=== PATIENT | female | born 1940 | race Caucasian/White ===

== ENCOUNTER 2017-02-16 11:34 | Inpatient (IN) ==
[2017-02-16 14:28] LABS: BASO% 0.1 % (0.0-0.8); EOS# 0.23 X1000 (0.0-0.7); EOS% 1.5 % (0.0-10.0); HEMATOCRIT 40.4 % (37.0-47.0); LYMPH# 2.61 X1000 (1.2-3.4); LYMPH% 17.4 % (20.5-51.1); MANUAL DIFF NEEDED? NO; MCH 30.2 PG (27-31); MCHC 32.2 g/dL (33-37); MCV 93.7 FL (81-99); MONO# 1.29 X1000 (0.11-0.59); MONO% 8.6 % (1.7-9.3); MPV 10.2 FL (7.4-10.4); NEUT% 72.4 % (42.2-75.2); PLT 190 X1000 (130-400); RBC 4.31 XMIL (4.2-5.4)
[2017-02-16 14:48] LABS: ALBUMIN 3.3 g/dL (3.5-5.0); CALCIUM 9.5 mg/dL (8.8-10.2); POTASSIUM 2.9 mmol/L (3.5-5.1); TOTAL BILIRUBIN 0.27 mg/dL (0.20-1.00); TOTAL PROTEIN 7.4 g/dL (6.3-8.3)
[2017-02-16] MEDS ORDERED: KLOR-CON PO ONE ×2 (17:15→22:16)
[2017-02-16] MEDS ORDERED: LOVENOX 1 MG/KG SUBQ ONE (17:57)
--- NOTE | 2017-02-16 18:07 | PROVIDER DOCUMENTATION ---
This chart was entered by Lyric Cruz Scribe, acting as scribe for Sukumar Kay MD. HPI-Syncope/Dizziness - General Chief Complaint: Near Syncope Stated Complaint: SYNCOPE/ACCIDENTAL OVERDOSE Time Seen by Provider: 02/16/17 12:42 Source: patient Allergies/Adverse Reactions: Patient Allergies Allergy/AdvReac Type Severity Reaction Status Date / Time Penicillins Allergy Intermediate RASH Verified 02/16/17 14:28 ciprofloxacin [From Cipro] Allergy Unknown contraindicated Verified 02/16/17 14: 28 in MG ciprofloxacin HCl * Allergy Unknown contraindicated Verified 02/16/17 14:28 [From Cipro] in MG Home Medications: Home Medication List Medication Instructions Recorded Confirmed Last Taken Type Allopurinol 300 mg PO DAILY 02/16/17 02/16/17 02/16/17 09:00 History Aspirin [Lo-Dose Aspirin EC] 81 mg PO DAILY 02/16/17 02/16/17 02/16/17 09:00 History Calcium Carbonate/Vit D3 [Caltrate 1 tab PO DAILY 02/16/17 02/16/17 02/16/17 09: 00 History 600 + D] Carvedilol [Coreg] 25 mg PO BID 02/16/17 02/16/17 02/16/17 09:00 History Cholecalciferol (Vit D3) [Vitamin 1,000 unit PO DAILY 02/16/17 02/16/17 09:00 History D] Cyclobenzaprine [Flexeril] 10 mg PO TID 02/16/17 02/16/17 02/16/17 06:00 History Estrogens, Conjugated [Premarin] 0.3 mg PO DAILY 02/16/17 02/16/17 02/16/17 09: 00 History Fenofibrate [Tricor] 48 mg PO QHS 02/16/17 02/16/17 02/15/17 17:00 History Folic Acid 1 mg PO DAILY 02/16/17 02/16/17 02/16/17 09:00 History Furosemide [Lasix] 20 mg PO DAILY 02/16/17 02/16/17 02/16/17 09:00 History Gabapentin 600 mg PO Q8H 02/16/17 02/16/17 02/16/17 06:00 History Hydrochlorothiazide 12.5 mg PO DAILY 04/07/2702/16/17 02/16/17 09:00 History Lisinopril 2.5 mg PO DAILY 02/16/17 02/16/17 02/16/17 09:00 History [place]-3 Fatty Acids/Fish Oil [Fish 1 each PO DAILY 02/16/17 02/16/17 02/16/17 09 :00 History Oil 1,000 mg Capsule] Polyethylene Glycol 3350 [Miralax] 17 gm PO DAILY 02/16/17 02/16/17 02/16/17 09: 00 History Prednisone 7.5 mg PO DAILY 02/16/17 02/16/17 02/16/17 09:00 History Rosuvastatin Calcium [Crestor] 5 mg PO HS 02/16/17 02/16/17 02/15/17 17:00 History Vitamin S73-[id number] Factor 2 each PO DAILY 02/16/17 02/16/17 02/16/17 09:00 History [Martinic] - History of Present Illness-Syncope/Dizzy Nature of Presenting Problem: Pt is 76 y/o F presents to the ED with near syncopal episode. Pt states she felt faint then was lowered to the ground. Pt denies LOC. PT denies CP or SOB. Pt denies vision changes. Pt denies recent med change. Prior Episodes: reports: single episode today Onset/Duration: reports: just prior to arrival Timing: reports: still present Position/Activity at time of episode: reports: standing Symptoms prior to episode: reports: none Context: reports: felt faint Loss of Consciousness: no loss of consciousness Location of injury. (If syncope resulted in an injury.): reports: none Current Symptoms: reports: none/feels normal Recently Seen Here or By Another Healthcare Provider: Yes (6 weeka ago right hip replacement) Review of Systems - Adult - REVIEW OF SYSTEMS - ADULT Constitutional: reports: no symptoms reported Eyes: reports: no symptoms reported Ears, Nose, Mouth & Throat: reports: no symptoms reported Cardiovascular: reports: syncope Respiratory: reports: no symptoms reported Gastrointestinal: reports: no symptoms reported Genitourinary: reports: no symptoms reported Musculoskeletal: reports: no symptoms reported Integumentary: reports: no symptoms reported Neurological: reports: syncope (near). denies: dizziness/vertigo, headache/ migraines Psychiatric: reports: no symptoms reported Endocrine: reports: no symptoms reported Hematologic/Lymphatic: reports: no symptoms reported Allergic/Immunologic: reports: no symptoms reported All Other Systems: Reviewed and Negative Past History - Adult - PAST MEDICAL HISTORY-ADULT Review of Records: reports: Nursing Assessment Review, Medications Reviewed, Social history reviewed & non-contributory. Major Childhood Illnesses: reports: denies history Cardiovascular: reports: HTN, hyperlipidemia Respiratory: reports: denies history Gastrointestinal: reports: GERD Obstetrical/Gynecological: reports: denies history Genitourinary: reports: denies history Musculoskeletal: reports: denies history Neurological: reports: denies history Endocrine/Immune: reports: denies history Other Conditions: reports: denies history - PRIOR SURGERIES/PROCEDURES Surgical/Procedure History: reports: hysterectomy, tonsillectomy, joint replacement - IMMUNIZATION STATUS Childhood Immunizations: See Nurse Assessment Flu Vaccine: See Nurse Assessment - FAMILY HISTORY Family History: reviewed, not pertinent - SOCIAL HISTORY Smoking: denies Substance Use: denies Living Situation: family Physical Exam-General - PHYSICAL EXAM-ADULT Initial Vital Signs Reviewed: Yes - CONSTITUTIONAL General Appearance: appears well, alert, no apparent distress - EYES Eyes: PERRL/EOMI, pink conjunctivae - HEAD, EARS, NOSE, MOUTH & THROAT HENMT: normocephalic/atraumatic, moist mucous membranes, normal ENT inspection, TMs normal, pharynx normal - NECK Neck: non-tender, full range of motion, supple, normal inspection - RESPIRATORY Respiratory: chest non-tender, lungs clear, normal breath sounds, no pleuratic chest pain, no respiratory distress, no accessory muscle use - CARDIOVASCULAR Cardiovascular: normal peripheral pulses, regular rate, rhythm, no edema, no gallop, no JVD, no murmur - GASTROINTESTINAL (ABDOMEN) Abdominal Exam: normal bowel sounds, non tender, soft, no organomegaly, no pulsatile mass - LYMPHATIC Lymphatic: no adenopathy - MUSCULOSKELETAL Back Exam: normal inspection, no CVA tenderness, no vertebral tenderness Extremity: normal range of motion, non-tender, normal gait, normal inspection, no pedal edema, no calf tenderness, normal capillary refill, pelvis stable - SKIN Integumentary: normal color, normal turgor, warm/dry - NEUROLOGIC Neurologic: grossly normal - PSYCHIATRIC Psych/Mental Status: normal mood/affect, oriented x 3 Progress - PLAN OF CARE/RESULTS Progress/Plan/Lab Results: Laboratory Results - last 24 hr 02/16/17 02/16/1717 14:09 14:09 14:09 WBC 14.99 H RBC 4.31 Hgb 13.0 Hct 40.4 MCV 93.7 MCH 30.2 MCHC 32.2 L RDW Std Deviation 15.0 H Plt Count 190 MPV 10.2 Neut % (Auto) 72.4 Lymph % (Auto) 17.4 L [place] % (Auto) 8.6 Eos % (Auto) 1.5 Baso % (Auto) 0.1 Neut # (Auto) 10.84 H Lymph # (Auto) 2.61 [place] # (Auto) 1.29 H Eos # (Auto) 0.23 Baso # (Auto) 0.02 Sodium 136 Potassium 2.9 L Chloride 93 L Carbon Dioxide 30 Anion Gap 13 BUN 22 Creatinine 1.0 H Estimated GFR/1.73 m2 54 BUN/Creatinine Ratio 22 Glucose 90 Calculated Osmolality 275 Calcium 9.5 Total Bilirubin 0.27 AST 14 ALT 13 Alkaline Phosphatase 77 Troponin T < 0.010 Total Protein 7.4 Albumin 3.3 L Globulin 4.1 Albumin/Globulin Ratio 0.8 Urine Source Urine Color Urine Turbidity Urine pH Ur Specific [place] Urine Protein Ur Glucose (Stick) Ur Ketones (Stick) Urine Blood Urine Nitrite Urine Bilirubin Urobilinogen Dipstick Urine Leukocytes Urine WBC (Auto) Urine RBC (Auto) U Epithel Cells (Auto) Urine Bacteria (Auto) 02/16/17 17:35 WBC RBC Hgb Hct MCV MCH MCHC RDW Std Deviation Plt Count MPV Neut % (Auto) Lymph % (Auto) [place] % (Auto) Eos % (Auto) Baso % (Auto) Neut # (Auto) Lymph # (Auto) [place] # (Auto) Eos # (Auto) Baso # (Auto) Sodium Potassium Chloride Carbon Dioxide Anion Gap BUN Creatinine Estimated GFR/1.73 m2 BUN/Creatinine Ratio Glucose Calculated Osmolality Calcium Total Bilirubin AST ALT Alkaline Phosphatase Troponin T Total Protein Albumin Globulin Albumin/Globulin Ratio Urine Source CLEAN CATCH Urine Color YELLOW Urine Turbidity CLEAR Urine pH 6.5 Ur Specific [place] 1.008 Urine Protein NEGATIVE Ur Glucose (Stick) NEGATIVE Ur Ketones (Stick) NEGATIVE Urine Blood NEGATIVE Urine Nitrite NEGATIVE Urine Bilirubin NEGATIVE Urobilinogen Dipstick NORMAL Urine Leukocytes NEGATIVE Urine WBC (Auto) <10 Urine RBC (Auto) <10 U Epithel Cells (Auto) <10 Urine Bacteria (Auto) NEGATIVE Orders Category Date Time Status CTA [ANGIOGRAM/PULMONARY ARTERIES] [CT] Stat Exams 02/16/17 17:52 Completed HEAD W/O CONTRAST [CT] Stat Exams 02/16/17 14:13 Draft CBC WITH DIFF [HEME] Stat Lab 02/16/17 14:09 Completed CMP [COMPREHENSIVE METABOLIC PANEL] [CHEM] Stat Lab 02/16/17 14:09 Completed TROPONIN T Stat Lab 02/16/17 14:09 Completed URINALYSIS W/POSS RFLX CULT [URINALYSIS] Stat Lab 02/16/17 17:35 Completed Allopurinol [Zyloprim] Med 02/17/17 09:00 Active 300 mg PO DAILY Aspirin EC Med 02/17/17 09:00 Active 81 mg PO DAILY Calcium Carbonate/Vit D3 [Caltrate 600 + D] Med 02/17/17 09:00 Active 1 each PO DAILY Carvedilol [Coreg] Med 02/17/17 09:00 Active 25 mg PO BID Cholecalciferol (Vit D3) [Vitamin D] Med 02/17/17 09:00 Active 1,000 unit PO DAILY Cyclobenzaprine [Flexeril] Med 02/17/17 09:00 Active 10 mg PO TID Enoxaparin 1 mg/kg [Lovenox 1 mg/kg] Med 02/16/17 17:57 Discontinued 1 each SUBQ NOW ONE Enoxaparin [Lovenox] Med 02/16/17 20:45 Discontinued 70 mg SUBQ NOW ONE Fenofibrate [Tricor] Med 02/17/17 21:00 Active 48 mg PO QHS Folic Acid Med 02/17/17 09:00 Active 1 mg PO DAILY Furosemide [Lasix] Med 02/17/17 09:00 Active 20 mg PO DAILY Gabapentin [Neurontin] Med 02/17/17 00:56 Active 600 mg PO Q8H LISINOpril [Prinivil] Med 02/17/17 09:00 Active 2.5 mg PO DAILY [place]-3 Fatty Acids [Fish Oil Concentrate] Med 02/17/17 09:00 Active 1,000 mg PO DAILY Patient's Own Med Med 02/17/17 09:00 Active 2 each PO DAILY Polyethylene Glycol 3350 [Miralax] Med 02/17/17 09:00 Active 17 gm PO DAILY Potassium Chloride E.r. [Klor-Con] Med 02/16/17 17:15 Discontinued 40 meq PO NOW ONE Prednisone Med 02/17/17 09:00 Active 7.5 mg PO DAILY ROSUVAstatin [Crestor] Med 02/17/17 21:00 Active 5 mg PO HS EKG [EKG] Stat Ther 02/16/17 14:13 Draft Transfer/Admit Order [TRANSFER] Routine Transfer 02/16/17 22:00 Completed Result Diagrams: 02/17/17 07:30 02/17/17 07:30 - REASSESSMENT Reassessment #2 Time Reassessed: 17:30 Status: other (Made aware by nursing that patient became short of breath and her oxygen saturation dropped to the mid 80's. patient has had recent surgery as well.) - CT/MRI 1 CT Study: Head Impression: Normal CT Results: no acute disease; unchanged - CHANGE OF SHIFT REPORT (ED Provider) Report Given and Care Transferred to:: Dr. Calhoun Time of Transfer: 17:52 Items Pending: CT/MRI Results Departure - Departure Time of Disposition Decision: 17:15 DIAGNOSIS: Hypokalemia, Syncope, near Disposition: ADMITTED INPATIENT 09 Certified Medical Emergency: Emergent Condition: Stable This chart was documented by the indicated scribe, (Lyric Cruz Scribe) and accurately reflects the services I performed and decisions made by me, Sukumar Kay MD, as attested by the provider's signature.
[2017-02-16 18:31] LABS: URINE CULTURE NEEDED? NO; URINE MICRO REVIEW NEEDED? NO; URINE SOURCE CLEAN CATCH
[2017-02-16 18:41] LABS: BILIRUBIN URINE NEGATIVE (NEGATIVE); BLOOD URINE NEGATIVE (NEGATIVE); COLOR YELLOW; GLUCOSE URINE NEGATIVE (NEGATIVE); LEUKOCYTES URINE NEGATIVE (NEGATIVE); NITRITE URINE NEGATIVE (NEGATIVE); PH URINE 6.5; PROTEIN URINE NEGATIVE (NEGATIVE); SP GRAVITY URINE 1.008; TURBIDITY URINE CLEAR (CLEAR); UROBILINOGEN URINE NORMAL (NORMAL)
[2017-02-16 18:43] LABS: UR EPITHELIAL CELLS <10 /HPF (<10); URINE BACTERIA NEGATIVE /HPF; URINE RBC <10 /HPF (<10); URINE WBC <10 /HPF (<10)
[2017-02-16] MEDS ORDERED: LOVENOX SUBQ ONE (20:45)
--- NOTE | 2017-02-17 00:01 | HISTORY AND PHYSICAL ---
PRIMARY CARE PHYSICIAN: Dr. Isabelle Mccracken. CHIEF COMPLAINT: Lightheadedness. HISTORY OF PRESENT ILLNESS: This is a 76-year-old female, with a history of hypertension, arthritis and recent hip surgery, who presented to the emergency department complaining of near syncopal episode. The patient reports this morning she felt faint, so she was helped by caregiver, and she was lowered to the ground. Since then, she was having this sensation of lightheadedness on and off. That is why she presented to the emergency department. She denies any chest pain, any chest discomfort, palpitations or shortness of breath just prior to the episode. The patient denies any fever. Patient reports that she has finished approximately 10 days of antibiotics for apparently a bronchitis possible. Patient does not remember which medication she was given. The patient had a recent surgery 6 weeks ago, in hospital, and as per the patient she was not discharged with any medication for prophylaxis of DVT. Here, she was evaluated in the ER, and she was found to have a bilateral pulmonary embolism, and because she was feeling mildly short of breath, and she was requiring 2 units of oxygen by nasal cannula, it was decided to admit this patient to the hospital. PAST MEDICAL HISTORY: 1. Hypertension. 2. Osteoarthritis. 3. Ankylosing spondylitis. Her doctor is Dr. Zepeda, the diet consultant. 4. Thymectomy for a recurrent myasthenia gravis done in . 5. Chronic steroid use. The patient is on prednisone for at least 8 to 10 years. PAST SURGICAL HISTORY: 1. Hysterectomy. 2. Tonsillectomy. 3. Adenectomy. ALLERGIES: This patient is allergic to penicillin, and also she was recommended to not take ciprofloxacin because she had myasthenia gravis. SOCIAL HISTORY: She lives alone. No smoking, drinking alcohol or using illicit drugs. REVIEW OF SYSTEMS: The patient reports having lost 15 pounds in October 2016. PHYSICAL EXAMINATION: VITALS: Temperature 98.2, heart rate 104, respiratory rate 26, blood pressure 148/88, O2 saturation 98% on 3 L nasal cannula. GENERAL: On examination, this is a 76-year-old female, lying in bed, in no acute distress. HEENT: Head is normocephalic, with both eyes looks like there is a mild exophthalmos. Pupils equal, round, reactive to light and accommodation. Anicteric sclerae and pale conjunctivae. Mucous membranes moist. NECK: Supple. No JVD noted. No carotid bruits. No lymphadenopathy. No thyromegaly. CARDIOVASCULAR: S1, S2 heard. No murmurs, gallops, or rubs. Regular rate and rhythm. RESPIRATORY: Clear bilaterally to auscultation. No work of breathing or using accessory muscles. ABDOMEN: Soft, nontender to palpation. Bowel sounds present. No organomegaly. EXTREMITIES: No clubbing, cyanosis, or edema. Peripheral pulses present in both legs. NEUROLOGICAL: Patient is alert and oriented x3, able to move her extremities. Cranial nerves 2 through 12 grossly normal. LABORATORY DATA: White cell count 14.99, hemoglobin 13.0, hematocrit 40.4, platelets 190,000. BMP remarkable for potassium 2.9. ASSESSMENT AND PLAN: 1. Bilateral pulmonary embolism. 2. Hypokalemia. 3. Hypertension. 4. Osteoarthritis and ankylosing spondylitis, on chronic prednisone therapy. PLAN: 1. The patient is going to be admitted to the hospital, because of this pulmonary embolism, requiring now 3 L of oxygen by nasal cannula. At this time, patient will continue with oxygen supplementation. 2. We are going to start Xarelto 15 mg p.o. b.i.d. tomorrow, because today she has received 1 dose of Lovenox 1 mg/kg subcutaneously already. 3. For leukocytosis I think this is because of the chronic steroid use. She reports that she has been using prednisone for a few years. 4. Also, the CT angio of the chest did not show any lung infections, so I think that we are not going to use any antibiotics. 5. For hypokalemia, we are going to supplement potassium, and check BMP tomorrow. 6. For osteoarthritis and ankylosing spondylitis, we will continue with prednisone therapy. 7. Further recommendations to follow according to the clinical situation of the patient. cc: Levon Dawson MD
[2017-02-17] MEDS ORDERED: ZOFRAN IV PRN (00:56)
[2017-02-17] MEDS ORDERED: NEURONTIN ONE (02:05)
[2017-02-17] MEDS: NS 1,000 ML IV SCH ×2 (02:11→17:51)
[2017-02-17] MEDS: NEURONTIN PO SCH ×3 (02:11→21:22)
--- NOTE | 2017-02-17 06:07 | EKG Report ---
Test Performed on : 02/16/2017 12:29:30 PM Test Reason : SYNCOPE Blood Pressure : / mmHG Vent. Rate : 096 BPM Atrial Rate : 096 BPM P-R Int : 196 ms QRS Dur : 086 ms QT Int : 356 ms P-R-T Axes : 056 -09 041 degrees QTc Int : 449 ms Normal sinus rhythm. Nonspecific ST abnormality Abnormal ECG No previous ECGs available Unconfirmed Result
[2017-02-17] MEDS: PRILOSEC PO SCH (06:15)
--- NOTE | 2017-02-17 07:13 | Diag Imaging Result Document ---
PROCEDURE NAME: ANGIOGRAM/PULMONARY ARTERIES - 02/16/2017 CT CHEST WITH INTRAVENOUS CONTRAST Pulmonary arterial protocol. FINDINGS: There are large, bilateral pulmonary emboli. Largest thrombus load is in the right main pulmonary artery with extension into the upper and lower lobe pulmonary arteries. No thoracic aortic aneurysm or dissection. No cardiomegaly. No pleural effusions. No enlarged mediastinum or hilar lymph nodes. No consolidation. Atelectasis versus tiny infiltrates inferiorly. These are most pronounced in the left lower lobe. No bronchiectasis. IMPRESSION: Large pulmonary emboli. A preliminary report was immediately called to the emergency room physician at 6:48 p.m.
--- NOTE | 2017-02-17 07:25 | Diag Imaging Result Document ---
PROCEDURE NAME: HEAD W/O CONTRAST - 02/16/[address]: A CT dose reduction protocol was used. COMPARISON: 01/01/2017. FINDINGS: The ventricles and sulci are normal in size and contour. No intracranial mass or hemorrhage. Stable periventricular white matter chronic microvascular disease. The skull is intact. The sinuses, mastoids, and middle ears are clear. IMPRESSION: No acute disease or change from prior. [facility]
[2017-02-17 07:35] LABS: MANUAL DIFF NEEDED? NO
[2017-02-17 07:38] LABS: BASO% 0.2 % (0.0-0.8); EOS# 0.25 X1000 (0.0-0.7); EOS% 1.6 % (0.0-10.0); HEMATOCRIT 36.6 % (37.0-47.0); HEMOGLOBIN 11.8 g/dL (12.0-16.0); IMM GRAN# 0.21 X1000 (0.0-0.04); IMM GRAN% 1.3 % (0.0-0.5); LYMPH# 2.98 X1000 (1.2-3.4); MCHC 32.2 g/dL (33-37); MCV 93.1 FL (81-99); MONO# 1.55 X1000 (0.11-0.59); MONO% 9.9 % (1.7-9.3); MPV 10.1 FL (7.4-10.4); PLT 158 X1000 (130-400); RBC 3.93 XMIL (4.2-5.4)
[2017-02-17 08:02] LABS: AGAP 13; BUN 16 mg/dL (8-22); CALCIUM 8.7 mg/dL (8.8-10.2); CHLORIDE 98 mmol/L (98-107); COSMO 277; POTASSIUM 4.1 mmol/L (3.5-5.1); SODIUM 137 mmol/L (136-145); TCO2 26 mmol/L (25-35)
[2017-02-17] MEDS: PRINIVIL PO SCH (10:13)
[2017-02-17] MEDS: FOLIC ACID PO SCH (10:14)
[2017-02-17] MEDS: FLEXERIL PO SCH ×3 (10:14→17:17)
[2017-02-17] MEDS: LASIX PO SCH (10:14)
[2017-02-17] MEDS: ASPIRIN EC PO SCH (10:14)
[2017-02-17] MEDS: XARELTO PO SCH ×2 (10:14→21:23)
[2017-02-17] MEDS: FISH OIL CONCENTRATE PO SCH (10:14)
[2017-02-17] MEDS: CALTRATE 600 + D PO SCH (10:14)
[2017-02-17] MEDS: ZYLOPRIM PO SCH (10:15)
[2017-02-17] MEDS: VITAMIN D PO SCH (10:15)
[2017-02-17] MEDS: COREG PO SCH ×2 (10:15→21:22)
[2017-02-17] MEDS: PREDNISONE PO SCH (10:15)
[2017-02-17] MEDS: PATIENT'S OWN MED PO SCH (10:18)
[2017-02-17] MEDS: MIRALAX PO SCH (10:18)
[2017-02-17] MEDS ORDERED: CRESTOR PO SCH (21:00)
[2017-02-17] MEDS ORDERED: TRICOR PO SCH (21:00)
--- NOTE | 2017-02-17 21:08 | ECHO REPORT ---
ORDER DATE: 02/17/2017 MEASUREMENTS: Left ventricular end-diastolic 3.7, end-systolic 2.5, posterior wall thickness 0.9, septal wall thickness 1.1, left atrium 4.1, aortic root 3.6. SUMMARY: 1. Fair quality study. 2. Mild sclerosis of trileaflet aortic valve demonstrated with normal aortic valve opening evident. Mitral, tricuspid and pulmonic valves are without structural abnormality with trace mitral regurgitation and trace tricuspid regurgitation. There is mild pulmonic insufficiency. Estimated systolic PA pressure by Doppler is approximately 80-85 mmHg suggesting severe pulmonary hypertension. Aortic root is normal in size. 3. Normal left ventricular dimensions demonstrated. Estimated left ventricular ejection fraction is approximately 70%. Original wall motion abnormalities are evident. Left atrium is mildly enlarged. Right atrium is of normal size. Right ventricle appears mildly enlarged with preserved right ventricular systolic function. 4. No pericardial effusion. 5. Appearance of inferior vena cava suggests mild elevation of central venous pressure. CONCLUSIONS: 1. Fair quality study. 2. Mild aortic valve sclerosis without stenosis. 3. Trace tricuspid regurgitation with severe pulmonary hypertension suggested by Doppler. 4. Normal left ventricular systolic function without wall motion abnormality evident. 5. Mild left atrial enlargement. 6. Mild right ventricular enlargement. 7. Elevation of central venous pressure is suggested. cc: MD Levon Pierce MD
[2017-02-18] MEDS: NEURONTIN PO SCH (05:23)
[2017-02-18] MEDS: NS 1,000 ML IV SCH (05:26)
--- NOTE | 2017-02-18 07:03 | DISCHARGE SUMMARY ---
ADMISSION DATE: 02/16/2017 DISCHARGE DATE: 02/17/2017 REASON FOR ADMISSION: She presented with lightheadedness PHYSICIAN: Her doctor is Isabelle Mccracken. HISTORY OF PRESENT ILLNESS: This is a 76-year-old with a history of hypertension, arthritis and had recent hip surgery. Presented to the emergency department complaining of a near-syncopal event. That morning, she felt faint and she was helped by her caregiver, lowered to the ground. Since then, she was lying with a sensation of lightheadedness off and on. She presented to the emergency room. Denied any chest discomfort or palpitations or shortness of breath prior to the episode. The patient denied any fever or chills. She had finished approximately 10 days of antibiotics apparently for bronchitis. The patient did not remember the medication she was given. Patient recently had surgery about 6 weeks ago and she was not discharged with any medication for DVT prophylaxis. She was evaluated in the emergency room. Found to have bilateral pulmonary embolism. Because she was feeling mildly short of breath, she required 2 units of oxygen and nasal cannula. Decided to admit the patient to the hospital. PAST MEDICAL HISTORY: 1. Hypertension. 2. Osteoarthritis. 3. Ankylosing spondylitis. 4. Thymectomy. 5. Chronic steroid use. PAST SURGICAL HISTORY: 1. Hysterectomy. 2. Tonsillectomy. 3. Adenoidectomy. Patient admitted with bilateral embolism, hypokalemia, hypertension, osteoarthritis. PHYSICAL EXAMINATION: Vital Signs: Exam today, temp 98 degrees, pulse 105, respirations 21, blood pressure 154/90. HEENT: Pupils are equal, round. Lungs: Clear in all lung [place]. Cardiovascular: Regular rhythm and rate without murmur or S3. Abdomen: Soft. Skin: Warm and dry. DIAGNOSTIC DATA: No white count from yesterday. White count 15,650, hematocrit 36, platelet count 158,000. Sodium 137, potassium 4.1, chloride 98, bicarb 26, BUN 16, creatinine 0.8. Liver functions unremarkable. Blood sugar 90 and 129. Urinalysis unremarkable. TSH was 1.34. CT of the head without contrast. No acute disease or change. Pulmonary arteriogram: Large pulmonary emboli. No sign of right ventricular strain and basically otherwise asymptomatic. ASSESSMENT AND PLAN: 1. Large pulmonary emboli. Continue the Xarelto. Received 1 dose of Lovenox. Will watch her through today. If stable, could think about going back to [place] tomorrow. 2. Leukocytosis. Probably from chronic steroid use. 3. CT angiogram did not show any lung infections. 4. Hypokalemia, supplemented. 5. Osteoarthritis. 6. Review of orders. I do not see any change at this point. She is on the Lovenox 70 mg and got 1 dose and now is on Xarelto and she is getting, I believe, 15 mg twice a day. 7. Blood pressure, well controlled. 8. History of hypercholesterolemia, aware. I do not see any change in medications. cc: Abdelrahman Nguyen MD
[2017-02-18 07:13] LABS: MANUAL DIFF NEEDED? NO
[2017-02-18] MEDS: PRILOSEC PO SCH (07:15)
[2017-02-18 07:41] VITALS: BP 175/86
[2017-02-18 07:42] LABS: BASO% 0.2 % (0.0-0.8); EOS% 2.2 % (0.0-10.0); HEMATOCRIT 32.8 % (37.0-47.0); HEMOGLOBIN 10.6 g/dL (12.0-16.0); IMM GRAN# 0.13 X1000 (0.0-0.04); LYMPH# 2.79 X1000 (1.2-3.4); LYMPH% 20.5 % (20.5-51.1); MCH 30.5 PG (27-31); MCHC 32.3 g/dL (33-37); MCV 94.5 FL (81-99); MONO# 1.61 X1000 (0.11-0.59); MONO% 11.9 % (1.7-9.3); MPV 10.5 FL (7.4-10.4); NEUT% 64.2 % (42.2-75.2); PLT 148 X1000 (130-400); RBC 3.47 XMIL (4.2-5.4)
[2017-02-18 07:45] LABS: AGAP 12; BUN 13 mg/dL (8-22); CHLORIDE 99 mmol/L (98-107); COSMO 274; POTASSIUM 3.4 mmol/L (3.5-5.1); SODIUM 137 mmol/L (136-145); TCO2 26 mmol/L (25-35)
[2017-02-18] MEDS: VITAMIN D PO SCH (08:44)
[2017-02-18] MEDS: FLEXERIL PO SCH (08:44)
[2017-02-18] MEDS: FISH OIL CONCENTRATE PO SCH (08:44)
[2017-02-18] MEDS: PRINIVIL PO SCH (08:44)
[2017-02-18] MEDS: LASIX PO SCH (08:44)
[2017-02-18] MEDS: PREDNISONE PO SCH (08:44)
[2017-02-18] MEDS: CALTRATE 600 + D PO SCH (08:44)
[2017-02-18] MEDS: ASPIRIN EC PO SCH (08:44)
[2017-02-18] MEDS: FOLIC ACID PO SCH (08:44)
[2017-02-18] MEDS: XARELTO PO SCH (08:44)
[2017-02-18] MEDS: ZYLOPRIM PO SCH (08:44)
[2017-02-18] MEDS: PATIENT'S OWN MED PO SCH (08:45)
[2017-02-18] MEDS: COREG PO SCH (08:45)
[2017-02-18] MEDS: MIRALAX PO SCH (08:45)
[2017-02-18] MEDS ORDERED: CALMOSEPTINE OINTMENT TOP PRN (08:47)
--- NOTE | 2017-02-21 15:28 | Extremity Venous Study ---
PROCEDURE NAME: Venous U/S Bilateral Legs - 02/17/2017 REFERRING PHYSICIAN: Dr. Miller. READING PHYSICIAN: Dr. Novak. BUSINESS SUPPORT ASSOCIATE: Janelle. INDICATION: Shortness of breath and pulmonary embolus. FINDINGS: The deep and superficial veins of the right lower extremity were imaged first. The proximal superficial femoral vein has thrombus and is noncompressible and without flow. The deep and superficial veins of the left side were then imaged. There is thrombus noted in the left common femoral, deep femoral, superficial femoral, popliteal, proximal posterior tibial, proximal peroneal and gastrocnemius veins. In addition, there is acute thrombus in the proximal left lesser saphenous vein. There is minimal flow or compressibility throughout the left side in the deep system as well as the lesser saphenous vein. INTERPRETATION: There is extensive deep vein thrombosis as described above on the left. There is also acute deep vein thrombosis of the right superficial femoral vein and acute superficial venous thrombosis of the left lesser saphenous vein. cc: MD Levon Looney MD
== END 2017-02-18 13:30 ==
LOC: ED 11:34 → SUATTDRO 22:02 → 3N 02-17 03:09
PROVIDERS: ATTEND Emergency Medicine

== ENCOUNTER 2017-02-28 17:00 | Inpatient (IN) ==
[2017-02-28 18:00] LABS: ALLEN TEST YES; BE 9.3 mmoll (-3.0-3.0); BLOOD TYPE ARTERIAL; DRAW SITE R RADIAL; METHB 1.6 % (0.0-1.5); PCO2(98.6) 38 mmHg (35-45); SAMPLE BLOOD; SAO2 92.3 % (95.0-100.0); THB 11.2 g/dL (11.5-17.4); pH(98.6) 7.54 (7.35-7.45)
[2017-02-28 18:02] LABS: MODALITY CANNULA; PO2(98.6) 49 mmHg (60-100)
[2017-02-28 18:57] LABS: MANUAL DIFF NEEDED? NO
[2017-02-28 19:07] LABS: BASO% 0.5 % (0.0-0.8); EOS# 0.01 X1000 (0.0-0.7); EOS% 0.1 % (0.0-10.0); HEMATOCRIT 39.4 % (37.0-47.0); HEMOGLOBIN 12.7 g/dL (12.0-16.0); IMM GRAN# 0.12 X1000 (0.0-0.04); LYMPH% 11.3 % (20.5-51.1); MCH 30.1 PG (27-31); MCHC 32.2 g/dL (33-37); MCV 93.4 FL (81-99); MONO# 0.93 X1000 (0.11-0.59); MONO% 7.5 % (1.7-9.3); NEUT% 79.6 % (42.2-75.2); PLT 226 X1000 (130-400); RBC 4.22 XMIL (4.2-5.4)
[2017-02-28 19:13] LABS: INR 1.47; PROTIME 15.8 Seconds (9.2-11.7); PTT 37.6 Seconds (22.0-36.0)
--- NOTE | 2017-02-28 19:24 | Diag Imaging Result Document ---
PROCEDURE NAME: CHEST-PORTABLE - 02/28/2017 PORTABLE CHEST: COMPARISON: Compared to 02/21/2017. Sternal wires and surgical clips are present. Poor inspiratory effort. The right hemidiaphragm is elevated. Development of a right basilar infiltrate or atelectasis. Left lung remains clear. Mild vascular distention. IMPRESSION: Development of a right basilar infiltrate or atelectasis in addition to mild pulmonary edema.
[2017-02-28 19:37] LABS: ALBUMIN 3.1 g/dL (3.5-5.0); CALCIUM 9.2 mg/dL (8.8-10.2); POTASSIUM 3.5 mmol/L (3.5-5.1); TOTAL BILIRUBIN 0.41 mg/dL (0.20-1.00)
[2017-02-28] MEDS ORDERED: ROCEPHIN 1 GM/NS 1 GM/50 ML IVPB IV ONE (19:46)
[2017-02-28] MEDS ORDERED: NS 1,000 ML IV ONE (19:46)
[2017-02-28 19:50] LABS: URINE CULTURE NEEDED? NO; URINE MICRO REVIEW NEEDED? NO; URINE SOURCE CATH
[2017-02-28 19:57] LABS: BILIRUBIN URINE NEGATIVE (NEGATIVE); BLOOD URINE NEGATIVE (NEGATIVE); COLOR STRAW; GLUCOSE URINE NEGATIVE (NEGATIVE); LEUKOCYTES URINE NEGATIVE (NEGATIVE); NITRITE URINE NEGATIVE (NEGATIVE); PROTEIN URINE NEGATIVE (NEGATIVE); SP GRAVITY URINE 1.009; TURBIDITY URINE CLEAR (CLEAR); UROBILINOGEN URINE NORMAL (NORMAL)
[2017-02-28 19:58] LABS: UR EPITHELIAL CELLS <10 /HPF (<10); URINE BACTERIA NEGATIVE /HPF; URINE RBC <10 /HPF (<10); URINE WBC <10 /HPF (<10)
[2017-02-28 20:04] LABS: UR AMPHETAMINES QUAL NONE DETECTED (NONE DETECT); UR BARBITUATES QUAL NONE DETECTED (NONE DETECT); UR BENZODIAZEPIN QUAL NONE DETECTED (NONE DETECT); UR CANNABINOIDS QUAL NONE DETECTED (NONE DETECT); UR COCAINE QUAL NONE DETECTED (NONE DETECT); UR METHADONE QUAL NONE DETECTED (NONE DETECT); UR OPIATES QUAL NONE DETECTED (NONE DETECT); UR OXYCODONE QUAL NONE DETECTED (NONE DETECT); UR PCP QUAL NONE DETECTED (NONE DETECT)
--- NOTE | 2017-02-28 20:14 | PROVIDER DOCUMENTATION ---
This chart was entered by Daniel Fernandez Scribe, acting as scribe for Estrada Mirza PA. HPI-Psychological Disorder - General Chief Complaint: Altered Mental Status Stated Complaint: AMS Time Seen by Provider: 02/28/17 18:14 Source: patient, family Allergies/Adverse Reactions: Patient Allergies Allergy/AdvReac Type Severity Reaction Status Date / Time Penicillins Allergy Intermediate RASH Verified 02/21/17 15:37 ciprofloxacin [From Cipro] Allergy Unknown contraindicated Verified 02/21/17 15: 37 in MG ciprofloxacin HCl * Allergy Unknown contraindicated Verified 02/21/17 15:37 [From Cipro] in MG Home Medications: Home Medication List Medication Instructions Recorded Confirmed Last Taken Type Allopurinol 300 mg PO DAILY 02/16/17 02/21/17 02/27/17 History Aspirin [Lo-Dose Aspirin EC] 81 mg PO DAILY 02/16/17 02/21/17 02/27/17 History Calcium Carbonate/Vit D3 [Caltrate 1 tab PO DAILY 02/16/17 02/21/17 02/27/17 History 600 + D] Carvedilol [Coreg] 25 mg PO BID 02/16/17 02/21/17 02/27/17 History Cholecalciferol (Vit D3) [Vitamin 1,000 unit PO DAILY 02/16/17 02/21/17 History D3] Cyclobenzaprine [Flexeril] 10 mg PO TID 02/16/17 02/21/17 02/27/17 History Fenofibrate [Tricor] 48 mg PO QHS 02/16/17 02/21/17 02/27/17 History Folic Acid 1 mg PO DAILY 02/16/17 02/21/17 02/27/17 History Furosemide [Lasix] 20 mg PO DAILY 02/16/17 02/21/17 02/27/17 History Gabapentin 600 mg PO Q8H 02/16/17 02/21/17 02/27/17 History Lisinopril 2.5 mg PO DAILY 02/16/17 02/21/17 02/27/17 History [place]-3 Fatty Acids/Fish Oil [Fish 1 each PO DAILY 02/16/17 02/21/17 02/27/17 History Oil 1,000 mg Capsule] Prednisone 7.5 mg PO DAILY 02/16/17 02/16/1717 History Rosuvastatin Calcium [Crestor] 5 mg PO HS 02/16/17 02/21/17 02/27/17 History T-1 Vitamin X22-Oydslhkoo Factor 2 each PO DAILY 02/16/17 02/21/17 02/27/17 History [Martinic] Rivaroxaban [Xarelto] 20 mg PO DAILY #30 tablet 02/18/17 02/21/17 02/27/17 Rx Azithromycin [Zithromax Z-Alli] 250 mg PO DIRECTED #1 pkg 02/21/17 02/27/17 Rx - History of Present Illness-Psych Nature of Presenting Problem: Pt is a 76 yof who presents to ER via EMS after family noticed pt has become altered. reports that pt has been extremely weak/lethargic and has slept most of yesterday and today. reports that pt did not recognize him , and this has happened to pt before while in [place] and was diagnosed with a UTI. On exam, pt is A/Ox2, disoriented to time. Family also reports that pt was here 1.5 weeks ago for a blood clot and was put on Xarelto and had it filled yesterday, and pt has not had her rx today. Onset/Duration: reports: last night Timing: reports: still present Severity: reports: moderate Psychiatric Complaints: reports: other (weak/fatigued/lethargic) Previous psych related hospitalizations?: No Patient arrived by:: private car Similar Symptoms Previously?: Yes Recently seen or treated by another doctor?: No Review of Systems - Adult - REVIEW OF SYSTEMS - ADULT Constitutional: reports: fatique, other (lethargy/generalized weakness). 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 denies: discharge, dry eyes, decreased vision, blurred vision, double vision, eye pain, redness Ears, Nose, Mouth & Throat: reports: no symptoms reported Cardiovascular: reports: no symptoms reported Respiratory: reports: no symptoms reported Gastrointestinal: reports: no symptoms reported Genitourinary: denies: dysuria, discharge, frequency, flank pain, frequent UTI's , hematuria, hesitency, incontinence, urinary retention, urgency Musculoskeletal: reports: muscle weakness. denies: bone pain, back pain, frequent leg cramps, joint pain, joint swelling, muscle aches, neck pain Integumentary: reports: no symptoms reported Neurological: reports: no symptoms reported Psychiatric: reports: no symptoms reported Endocrine: reports: no symptoms reported Hematologic/Lymphatic: reports: no symptoms reported Allergic/Immunologic: reports: no symptoms reported All Other Systems: Reviewed and Negative Past History - Adult - PAST MEDICAL HISTORY-ADULT Review of Records: reports: Nursing Assessment Review, Medications Reviewed Cardiovascular: reports: HTN, hyperlipidemia Gastrointestinal: reports: GERD - PRIOR SURGERIES/PROCEDURES Surgical/Procedure History: reports: hysterectomy, tonsillectomy, joint replacement - IMMUNIZATION STATUS Childhood Immunizations: See Nurse Assessment Flu Vaccine: See Nurse Assessment - FAMILY HISTORY Family History: reviewed, not pertinent Physical Exam-Psych Focus - Physical Exam-Psych Initial Vital Signs Reviewed: Yes Appearance: appropriate appearance, appropriate insight, neat, alert, disheveled , lethargic, mild distress, slow to respond. 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 negative: normal mood/ affect, oriented x 3 (oriented x2) Behavior/Eye Contact/Speech: cooperative, good eye contact, decreased rate of speech. negative: normal speech, avoids eye contact, refused to answer, threatening eye contact Thoughts/Hallucinations: no apparent hallucination. negative: normal thought pattern, auditory hallucinations HENMT: normocephalic/atraumatic, moist mucous membranes, normal ENT inspection, TMs normal, pharynx normal Neck: non-tender, full range of motion, supple, normal inspection. negative: C- spine tenderness, limited range of motion, lymphadenopathy Respiratory: chest non-tender, lungs clear, normal breath sounds, no pleuratic chest pain, no respiratory distress, no accessory muscle use. negative: wheezing Cardiovascular: normal peripheral pulses, regular rate, rhythm. negative: bradycardia, tachycardia, irregularly irregular Abdominal Exam: normal bowel sounds, non tender, soft, no organomegaly, no pulsatile mass. negative: abnormal bowel sounds, distended, tenderness Extremity: normal range of motion, non-tender, normal gait, normal inspection, no pedal edema, no calf tenderness, normal capillary refill. negative: deformity, erythema, inflammation, swelling, tenderness Integumentary: normal color, normal turgor, warm/dry. negative: abrasion(s), diaphoresis, ecchymosis, erythema, laceration(s), swelling, tenderness, warm Progress - PLAN OF CARE/RESULTS Progress/Plan/Lab Results: Vital Signs - 8 hr 02/28/17 17:11 02/28/17 18:51 02/28/17 19:56 Temperature 97.9 F Pulse Rate 87 91 H 90 Respiratory Rate 27 H 27 H 22 Blood Pressure 165/93 175/93 180/86 O2 Sat by Pulse Oximetry 94 L 92 L 99 Laboratory Results - last 24 hr 02/28/17 02/28/17 02/28/17 17:50 18:35 18:35 WBC 12.41 H RBC 4.22 Hgb 12.7 Hct 39.4 MCV 93.4 MCH 30.1 MCHC 32.2 L RDW Std Deviation 15.1 H Plt Count 226 MPV 10.0 Immature Gran % (Auto) 1.0 H Neut % (Auto) 79.6 H Lymph % (Auto) 11.3 L [place] % (Auto) 7.5 Eos % (Auto) 0.1 Baso % (Auto) 0.5 Immature Gran # (Auto) 0.12 H Neut # (Auto) 9.89 H Lymph # (Auto) 1.40 [place] # (Auto) 0.93 H Eos # (Auto) 0.01 Baso # (Auto) 0.06 PT INR PTT (Actin FS) Specimen Type ARTERIAL Sample Site R RADIAL pH 7.54 H pCO2 38 pO2 49 L* HCO3 32.0 H Base Excess 9.3 H Oxyhemoglobin 89.0 L* ABG O2 Sat (Calculated) 14.0 L ABG O2 Saturation 92.3 L ABG Carboxyhemoglobin 2.00 ABG Methemoglobin 1.6 H Abdelrahman Test YES A-a O2 Difference 103.0 Total Hemoglobin 11.2 L Lactate 1.00 Liter Flow 2.0 Blood Gas Modality CANNULA FiO2 % 28.0 Sodium Potassium Chloride Carbon Dioxide Anion Gap BUN Creatinine Estimated GFR/1.73 m2 BUN/Creatinine Ratio Glucose Calculated Osmolality Calcium Magnesium Total Bilirubin AST ALT Alkaline Phosphatase Creatine Kinase Troponin T Total Protein Albumin Globulin Albumin/Globulin Ratio Urine Source Urine Color Urine Turbidity Urine pH Ur Specific [place] Urine Protein Ur Glucose (Stick) Ur Ketones (Stick) Urine Blood Urine Nitrite Urine Bilirubin Urobilinogen Dipstick Urine Leukocytes Urine WBC (Auto) Urine RBC (Auto) U Epithel Cells (Auto) Urine Bacteria (Auto) Urine Opiates Screen Ur Oxycodone Screen Ur Methadone, Qual Ur Barbiturates Screen Ur Phencyclidine Scrn Ur Amphetamines Screen U Benzodiazepines Scrn Urine Cocaine Screen U Cannabinoids Screen Plasma/Serum Ethyl Alc 02/28/17 02/28/17 02/28/17 18:35 18:35 18:35 WBC RBC Hgb Hct MCV MCH MCHC RDW Std Deviation Plt Count MPV Immature Gran % (Auto) Neut % (Auto) Lymph % (Auto) [place] % (Auto) Eos % (Auto) Baso % (Auto) Immature Gran # (Auto) Neut # (Auto) Lymph # (Auto) [place] # (Auto) Eos # (Auto) Baso # (Auto) PT 15.8 H INR 1.47 PTT (Actin FS) 37.6 H Specimen Type Sample Site pH pCO2 pO2 HCO3 Base Excess Oxyhemoglobin ABG O2 Sat (Calculated) ABG O2 Saturation ABG Carboxyhemoglobin ABG Methemoglobin Abdelrahman Test A-a O2 Difference Total Hemoglobin Lactate Liter Flow Blood Gas Modality FiO2 % Sodium 136 Potassium 3.5 Chloride 91 L Carbon Dioxide 27 Anion Gap 18 BUN 25 H Creatinine 1.3 H Estimated GFR/1.73 m2 40 BUN/Creatinine Ratio 19 Glucose 132 H Calculated Osmolality 278 Calcium 9.2 Magnesium Total Bilirubin 0.41 AST 16 ALT 9 L Alkaline Phosphatase 75 Creatine Kinase 16 L Troponin T 0.112 H Total Protein 7.0 Albumin 3.1 L Globulin 3.9 Albumin/Globulin Ratio 0.8 Urine Source Urine Color Urine Turbidity Urine pH Ur Specific [place] Urine Protein Ur Glucose (Stick) Ur Ketones (Stick) Urine Blood Urine Nitrite Urine Bilirubin Urobilinogen Dipstick Urine Leukocytes Urine WBC (Auto) Urine RBC (Auto) U Epithel Cells (Auto) Urine Bacteria (Auto) Urine Opiates Screen Ur Oxycodone Screen Ur Methadone, Qual Ur Barbiturates Screen Ur Phencyclidine Scrn Ur Amphetamines Screen U Benzodiazepines Scrn Urine Cocaine Screen U Cannabinoids Screen Plasma/Serum Ethyl Alc 02/28/17 02/28/17 02/28/17 18:35 18:54 18:54 WBC RBC Hgb Hct MCV MCH MCHC RDW Std Deviation Plt Count MPV Immature Gran % (Auto) Neut % (Auto) Lymph % (Auto) [place] % (Auto) Eos % (Auto) Baso % (Auto) Immature Gran # (Auto) Neut # (Auto) Lymph # (Auto) [place] # (Auto) Eos # (Auto) Baso # (Auto) PT INR PTT (Actin FS) Specimen Type Sample Site pH pCO2 pO2 HCO3 Base Excess Oxyhemoglobin ABG O2 Sat (Calculated) ABG O2 Saturation ABG Carboxyhemoglobin ABG Methemoglobin Abdelrahman Test A-a O2 Difference Total Hemoglobin Lactate Liter Flow Blood Gas Modality FiO2 % Sodium Potassium Chloride Carbon Dioxide Anion Gap BUN Creatinine Estimated GFR/1.73 m2 BUN/Creatinine Ratio Glucose Calculated Osmolality Calcium Magnesium 1.7 Total Bilirubin AST ALT Alkaline Phosphatase Creatine Kinase Troponin T Total Protein Albumin Globulin Albumin/Globulin Ratio Urine Source CATH Urine Color STRAW Urine Turbidity CLEAR Urine pH 7.0 Ur Specific [place] 1.009 Urine Protein NEGATIVE Ur Glucose (Stick) NEGATIVE Ur Ketones (Stick) NEGATIVE Urine Blood NEGATIVE Urine Nitrite NEGATIVE Urine Bilirubin NEGATIVE Urobilinogen Dipstick NORMAL Urine Leukocytes NEGATIVE Urine WBC (Auto) <10 Urine RBC (Auto) <10 U Epithel Cells (Auto) <10 Urine Bacteria (Auto) NEGATIVE Urine Opiates Screen NONE DETECTED Ur Oxycodone Screen NONE DETECTED Ur Methadone, Qual NONE DETECTED Ur Barbiturates Screen NONE DETECTED Ur Phencyclidine Scrn NONE DETECTED Ur Amphetamines Screen NONE DETECTED U Benzodiazepines Scrn NONE DETECTED Urine Cocaine Screen NONE DETECTED U Cannabinoids Screen NONE DETECTED Plasma/Serum Ethyl Alc Orders Category Date Time Status Cardiac Monitoring DIRECTED Care 02/28/17 17:44 Active Finger Stick Blood Sugar (ED) DIRECTED Care 02/28/17 17:44 Active Saline Loc NOW Care 02/28/17 17:44 Active CHEST-PORTABLE [RAD] Stat Exams 02/28/17 17:44 Completed HEAD W/O CONTRAST [CT] Stat Exams 02/28/17 18:16 Taken ABG [RESP] Routine Lab 02/28/17 17:50 Completed ALCOHOL BLOOD Stat Lab 02/28/17 18:35 Completed BLOOD CULTURE [BLDCUL] Stat Lab 02/28/17 18:45 Received CBC WITH ELECTRONIC DIFF [HEME] Stat Lab 02/28/17 18:35 Completed CK PROFILE [SP CHEM] Stat Lab 02/28/17 18:35 Completed COMPREHENSIVE METABOLIC PANEL [CHEM] Stat Lab 02/28/17 18:35 Completed MAGNESIUM [CHEM] Stat Lab 02/28/17 18:35 Completed PROTIME WITH INR [COAG] Stat Lab 02/28/17 18:35 Completed PTT [COAG] Stat Lab 02/28/17 18:35 Completed TROPONIN T Stat Lab 02/28/17 18:35 Completed URINALYSIS W/POSS RFLX CULT-1 [URINALYSIS] Stat Lab 02/28/17 18:54 Completed URINE DRUG SCREEN Stat Lab 02/28/17 18:54 Completed 0.9% Sodium Chloride Inj [Ns] 1,000 ml Med 02/28/17 19:46 Active IV 999 mls/hr CefTRIAXONE 1 GM/NS [Rocephin 1 gm/Ns] Med 02/28/17 19:46 Active 1 gm in 50 ml IV NOW Pulse Oximetry Stat Oth 02/28/17 17:44 Active EKG [EKG] Stat Ther 02/28/17 17:44 Ordered Result Diagrams: 02/28/17 18:35 02/28/17 18:35 - XRAY 1 XRAY: Bilateral XRAY Study: Chest Impression: See EMR Report XRAY Interpretation: RLL infiltrate - CT/MRI 1 CT Study: Head Impression: See EMR Report CT Results: Negative - CONSULTS/PCP/HOSPITALIST Notification #1 *Consult/PCP/Hospitalist*: Dr. Miller (Hospitalist) Time Discussed: 20:11 Consult Disposition: Admit Departure - Departure Time of Disposition Decision: 20:13 DIAGNOSIS: Hypoxemia Pneumonia Qualifiers: Pneumonia type: due to unspecified organism Laterality: right Lung location: lower lobe of lung Qualified Code(s): J18.1 - Lobar pneumonia, unspecified organism Altered mental state Qualifiers: Altered mental status type: unspecified Qualified Code(s): R41.82 - Altered mental status, unspecified Disposition: ADMITTED INPATIENT 09 Certified Medical Emergency: Emergent Condition: Stable Referrals and Follow-Ups: Isabelle Mccracken MD [Primary Care Provider] - Attestation - Physician/ BAM Attestation Patient care was provided by Advanced Practice Provider:: Yes Advanced Practice Provider:: Estrada Mirza Advanced Practice Provider documentation review:: The Mid-level provider documentation, treatment plan and medical decision making was reviewed by the physician who agrees with all treatment and medical decision making by the MLP. This chart was documented by the indicated scribe, (Fernandez,Daniel, Scribe) and accurately reflects the services I performed and decisions made by , Estrada Mirza PA, as attested by the provider's signature.
--- NOTE | 2017-02-28 20:37 | Diag Imaging Result Document ---
PROCEDURE NAME: HEAD W/O CONTRAST - 02/28/2017 STUDY: CT brain without contrast. PROTOCOL: Dose reduction protocol. COMPARISON: Compared to 02/16/2017. No parenchymal hemorrhage. No epidural or subdural hematoma. No subarachnoid hemorrhage. There are chronic microvascular ischemic changes. No mass identified on this noncontrasted study. No hydrocephalus. No sinus opacification. IMPRESSION: 1. No hemorrhage. 2. Chronic microvascular ischemic changes. A preliminary report was given at 7:41 p.m.
--- NOTE | 2017-02-28 22:38 | Diag Imaging Result Document ---
PROCEDURE NAME: CT THORAX W/O CONTRAST - 02/28/2017 CT CHEST WITHOUT CONTRAST: TECHNIQUE: Dose reduction protocol. FINDINGS: There are infiltrates in the lateral right upper lobe and in the right middle lobe. Tiny infiltrates are present in the left lower lobe. Trace right fluid. Heart is mildly enlarged. No thoracic aortic aneurysm. Moderate coronary artery calcifications. There are several calcified left hilar lymph nodes and there are scattered calcified granuloma. No enlarged mediastinal nodes. No bronchiectasis. Sternal wires are present. The lowest image of the abdomen included on the chest CT shows anterior prominence to the left kidney. This may simply represent malrotation although there could be an underlying lesion. IMPRESSION: 1. Right-sided pneumonia. 2. There is evidence of a prior granulomatous infection. 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 A preliminary report was given at 9:20 p.m.
[2017-02-28] MEDS ORDERED: ZOFRAN IV PRN (22:59)
[2017-02-28] MEDS: DUONEB (A & A) INH SCH (23:22)
[2017-02-28] MEDS: CRESTOR PO SCH (23:32)
[2017-02-28] MEDS: SODIUM CHLORIDE 0.9% INJ SCH (23:33)
[2017-02-28] MEDS: COREG PO SCH (23:33)
[2017-02-28] MEDS: PROTONIX IV SCH (23:33)
[2017-02-28] MEDS: TRICOR PO SCH (23:55)
[2017-03-01] MEDS: NS 1,000 ML IV SCH ×3 (00:52→20:28)
[2017-03-01] MEDS: DUONEB (A & A) INH SCH ×4 (03:33→20:05)
[2017-03-01 07:07] LABS: MANUAL DIFF NEEDED? NO
[2017-03-01 07:26] LABS: AGAP 14; BUN 19 mg/dL (8-22); CALCIUM 8.2 mg/dL (8.8-10.2); CHLORIDE 96 mmol/L (98-107); COSMO 276; POTASSIUM 2.9 mmol/L (3.5-5.1); SODIUM 136 mmol/L (136-145); TCO2 26 mmol/L (25-35)
[2017-03-01 07:27] LABS: BASO% 0.3 % (0.0-0.8); EOS# 0.03 X1000 (0.0-0.7); EOS% 0.3 % (0.0-10.0); HEMATOCRIT 33.2 % (37.0-47.0); HEMOGLOBIN 10.7 g/dL (12.0-16.0); IMM GRAN# 0.11 X1000 (0.0-0.04); IMM GRAN% 1.1 % (0.0-0.5); LYMPH# 1.47 X1000 (1.2-3.4); LYMPH% 14.8 % (20.5-51.1); MCHC 32.2 g/dL (33-37); MONO# 0.96 X1000 (0.11-0.59); MONO% 9.7 % (1.7-9.3); MPV 9.9 FL (7.4-10.4); NEUT% 73.8 % (42.2-75.2); PLT 223 X1000 (130-400); RBC 3.57 XMIL (4.2-5.4)
[2017-03-01] MEDS ORDERED: KLOR-CON PO ONE (07:50)
[2017-03-01] MEDS: FOLIC ACID PO SCH (09:19)
[2017-03-01] MEDS: CALTRATE 600 + D PO SCH (09:19)
[2017-03-01] MEDS: VITAMIN D PO SCH (09:19)
[2017-03-01] MEDS: PREDNISONE PO SCH (09:19)
[2017-03-01] MEDS: FISH OIL CONCENTRATE PO SCH (09:19)
[2017-03-01] MEDS: COREG PO SCH ×2 (09:19→20:33)
[2017-03-01] MEDS: PATIENT'S OWN MED PO SCH (09:20)
--- NOTE | 2017-03-01 13:50 | PROGRESS NOTE ---
DATE: 03/01/2017 SUBJECTIVE: The patient is confused. She denies having any complaints at this time. OBJECTIVE: Vital Signs: Temperature 99 degrees, blood pressure 162/80, heart rate 87, respirations 20, O2 saturations 92% on 2 L nasal cannula. General: This is a chronically ill- appearing, elderly female, lying in bed, in no acute distress. Head: Normocephalic atraumatic. Heart: S1, S2. Normal. Regular rate and rhythm. Lungs: Coarse breath sounds bilaterally. Abdomen: Positive bowel sounds. Soft, nontender, nondistended. Extremities: Trace pedal edema. No cyanosis. No calf tenderness. Neurologic: The patient is awake but confused. She is able to move all 4 extremities. LABS: White blood cell count 9.9, hemoglobin 10, hematocrit 33, platelets 223,000. Sodium 136, potassium 2.9, chloride 96, CO2 26. BUN 19, creatinine 0.9, glucose 129. Calcium 8.2. CT of the chest shows a right-sided pneumonia. ASSESSMENT AND PLAN: 1. Community-acquired pneumonia. Will continue on Rocephin and add Merrem. Continue with bronchodilator therapy and supplemental oxygen. Will also add incentive spirometry. 2. Recent pulmonary embolism with extensive bilateral deep venous thrombosis. Continue on Xarelto. 3. Severe pulmonary hypertension. Aware. 4. Morbid obesity. Aware. 5. Acute kidney injury. Resolved. 6. Hypertension. Continue on Coreg. cc: Shawna Castellon MD
--- NOTE | 2017-03-01 14:29 | HISTORY AND PHYSICAL ---
PRIMARY CARE PHYSICIAN: Dr. Isabelle Mccracken. CHIEF COMPLAINT: Altered mental status. HISTORY OF PRESENT ILLNESS: This is a 76-year-old female who was brought to the emergency department by EMS after family reported that this patient has become altered this morning. According to who is at bedside, he reported patient has been extremely lethargic had slept more all today and yesterday. said that patient did not recognize him and he reported he had this problem before back in [place] where they moved from 2 months ago. At that time patient had many UTIs. They said that patient has not had any fever. The patient was recently admitted to the hospital for shortness of breath and we found out that she had a bilateral pulmonary embolism. She is supposed to be on Xarelto. Although the notes from the ER said that she did not take her confirmed that she did take it today morning. Upon the ER evaluation white cell count was a little bit elevated and at home the x-ray shows right lower lobe pneumonia so patient will be admitted for further evaluation and treatment. PAST MEDICAL HISTORY: 1. Bilateral pulmonary embolism on Xarelto. 2. Hypertension. 3. Osteoarthritis. 4. Ankylosing spondylitis. 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 5. Chronic steroid use. Patient is on prednisone 7.5 mg for at least 8-10 years. PAST SURGICAL HISTORY: 1. Thymectomy for recurrent myasthenia gravis done in . 2. Hysterectomy. 3. Tonsillectomy. 4. Adenoidectomy. ALLERGIES: Patient is allergic to penicillin and patient was recommended not to take ciprofloxacin because she had myasthenia gravis but she is not allergic to. SOCIAL HISTORY: Patient lives with , no smoking, drinking alcohol or using illicit drugs. REVIEW OF SYSTEMS: Patient 11 systems were reviewed and all symptoms are related to H and P. PHYSICAL EXAMINATION: VITALS: Temperature 97.9 degrees, heart rate 91, respiratory rate 22, blood pressure 154/98, O2 saturation 98% on 3 L nasal cannula. GENERAL EXAMINATION: This is a chronically ill-looking and frail 76-year-old female lying in bed in no acute distress. HEENT: Head is normocephalic, atraumatic. Both eyes looks like there is some mild exophthalmus but pupils equal, round, reactive to light and accommodation. Anicteric sclerae and pale conjunctivae. Mucous membranes moist. NECK: Supple. No JVD noted. No carotid bruits. No lymphadenopathy. No thyromegaly. CARDIOVASCULAR: S1, S2 heard. No murmurs, gallops, or rubs. Regular rate and rhythm. RESPIRATORY EXAM: Few coarse breath sounds in both bases. Patient is not using any accessory muscles or having work of breathing. ABDOMEN: Soft, nontender to palpation. Bowel sounds present. No organomegaly. EXTREMITIES: No clubbing, cyanosis or edema. Peripheral pulses present in both legs. NEUROLOGICAL: Patient is lethargic but answered basic questions. Moved 4 extremities. LABORATORY DATA: White cell count 12.41, hemoglobin 12.7, hematocrit 39.4, platelets 226,000. ABG shows pH 7.54, pCO2 38, PO2 49 with a BUN that shows creatinine 1.3 and BUN 25. Negative urinalysis with negative UDS. Head CT was negative for hemorrhage and chest x-ray showed ASSESSMENT AND PLAN: 1. Community-acquired pneumonia. 2. Bilateral pulmonary embolism. 3. Hypertension. 4. Osteoarthritis. 5. Chronic steroid use. PLAN: 1. Patient is admitted to the hospital for altered mental status and right lower pneumonia. Considering this acute onset altered mental status and pneumonia is the only finding we prefer to have a CT of the chest without contrast to see the lung parenchyma depth. We are going to continue with ceftriaxone 1 g IV q.24 hours. Will also provide breathing treatments with DuoNeb 4 times per day. 2. For bilateral pulmonary embolism will continue with Xarelto 20 mg p.o. daily. For leukocytosis difficult to tell if this mild leukocytosis is because of the infection all or of chronic steroid use. At this time will continue with same doses of steroids. 3. For osteoarthritis and ankylosis spondylitis will continue with present therapy and pain medications. 4. Further recommendations to follow according to the clinical situation of the patient. cc: Levon Dawson MD
[2017-03-01] MEDS: MERREM 500 MG in NS 50 ML IV SCH ×2 (16:04→21:29)
[2017-03-01] MEDS: XARELTO PO SCH (16:05)
[2017-03-01] MEDS: ROCEPHIN 1 GM/NS 1 GM/50 ML IVPB IV SCH (20:33)
[2017-03-01] MEDS: PROTONIX IV SCH (20:33)
[2017-03-01] MEDS: CRESTOR PO SCH (20:33)
[2017-03-01] MEDS: SODIUM CHLORIDE 0.9% INJ SCH (20:33)
[2017-03-01] MEDS: TRICOR PO SCH (20:33)
[2017-03-02] MEDS: DUONEB (A & A) INH SCH ×4 (03:32→19:58)
[2017-03-02] MEDS: MERREM 500 MG in NS 50 ML IV SCH ×3 (05:35→22:51)
[2017-03-02 05:57] LABS: URINE CULTURE NEEDED? NO; URINE MICRO REVIEW NEEDED? NO; URINE SOURCE CATH
[2017-03-02 06:05] LABS: BILIRUBIN URINE NEGATIVE (NEGATIVE); BLOOD URINE NEGATIVE (NEGATIVE); COLOR YELLOW; GLUCOSE URINE NEGATIVE (NEGATIVE); LEUKOCYTES URINE NEGATIVE (NEGATIVE); NITRITE URINE NEGATIVE (NEGATIVE); PROTEIN URINE TRACE mg/dL (NEGATIVE); SP GRAVITY URINE 1.019; TURBIDITY URINE CLEAR (CLEAR); UR EPITHELIAL CELLS <10 /HPF (<10); URINE BACTERIA NEGATIVE /HPF; URINE RBC <10 /HPF (<10); URINE WBC <10 /HPF (<10); UROBILINOGEN URINE NORMAL (NORMAL)
[2017-03-02 07:25] LABS: MANUAL DIFF NEEDED? NO
[2017-03-02 07:38] LABS: BASO% 0.3 % (0.0-0.8); EOS# 0.08 X1000 (0.0-0.7); EOS% 0.9 % (0.0-10.0); HEMATOCRIT 33.2 % (37.0-47.0); HEMOGLOBIN 10.7 g/dL (12.0-16.0); IMM GRAN# 0.08 X1000 (0.0-0.04); IMM GRAN% 0.9 % (0.0-0.5); LYMPH# 1.25 X1000 (1.2-3.4); LYMPH% 14.1 % (20.5-51.1); MCH 29.9 PG (27-31); MCHC 32.2 g/dL (33-37); MCV 92.7 FL (81-99); MONO# 0.78 X1000 (0.11-0.59); MONO% 8.8 % (1.7-9.3); MPV 10.1 FL (7.4-10.4); PLT 229 X1000 (130-400); RBC 3.58 XMIL (4.2-5.4)
[2017-03-02 08:00] LABS: AGAP 15; BUN 19 mg/dL (8-22); CALCIUM 8.3 mg/dL (8.8-10.2); CHLORIDE 97 mmol/L (98-107); COSMO 273; MAGNESIUM 1.6 mg/dL (1.5-2.7); POTASSIUM 3.4 mmol/L (3.5-5.1); SODIUM 135 mmol/L (136-145); TCO2 23 mmol/L (25-35)
[2017-03-02] MEDS ORDERED: POTASSIUM PHOSPHATE 40 MMOL in NS 250.0000 ML IV ONE (08:06)
[2017-03-02] MEDS: CALTRATE 600 + D PO SCH (09:08)
[2017-03-02] MEDS: COREG PO SCH ×2 (09:08→22:26)
[2017-03-02] MEDS: FOLIC ACID PO SCH (09:08)
[2017-03-02] MEDS: PATIENT'S OWN MED PO SCH (09:08)
[2017-03-02] MEDS: FISH OIL CONCENTRATE PO SCH (09:08)
[2017-03-02] MEDS: VITAMIN D PO SCH (09:08)
[2017-03-02] MEDS: PREDNISONE PO SCH (09:08)
[2017-03-02] MEDS: XARELTO PO SCH (16:21)
--- NOTE | 2017-03-02 16:46 | PROGRESS NOTE ---
DATE: 03/02/2017 SUBJECTIVE: The patient is awake but mildly confused. She has no complaints at this time. Her is present at the bedside. OBJECTIVE: Vital Signs: Temperature 97 degrees, blood pressure 174/81, heart rate 83, respirations 18, O2 saturations 95% on 2 L nasal cannula. General: This is a chronically ill- appearing elderly female lying in bed in no acute distress. Head: Normocephalic, atraumatic. Heart: S1, S2. Normal. Regular rate and rhythm. Lungs: Coarse breath sounds bilaterally. No crackles. No rales. Abdomen: Positive bowel sounds. Soft, nontender, nondistended. Extremities: No edema. No cyanosis. No calf tenderness. Neurologic: The patient is awake but confused. She is able to move all 4 extremities. LABS: Phosphorus 1.8, magnesium 1.6, glucose 108, chloride 97, CO2 23, BUN 19, creatinine 0.8, sodium 135, potassium 3.4. White blood cell count 8.8, hemoglobin 10, hematocrit 33, platelets 229,000. ASSESSMENT AND PLAN: 1. Community-acquired pneumonia. Continue on Rocephin and Merrem. Will also continue on bronchodilator therapy and supplemental oxygen plus incentive spirometry. 2. Recent pulmonary embolism with extensive bilateral deep venous thrombosis. Continue on Xarelto. 3. Severe pulmonary hypertension. Aware. 4. Morbid obesity. Aware. 5. Hypertension. Continue on Coreg. Will add Norvasc. 6. Dyslipidemia. Continue on TriCor. 7. Will consult physical therapy. cc: Shawna Castellon MD
[2017-03-02] MEDS: SODIUM CHLORIDE 0.9% INJ SCH (22:15)
[2017-03-02] MEDS: PROTONIX IV SCH (22:15)
[2017-03-02] MEDS: ROCEPHIN 1 GM/NS 1 GM/50 ML IVPB IV SCH (22:21)
[2017-03-02] MEDS: CRESTOR PO SCH (22:26)
[2017-03-02] MEDS: NORVASC PO SCH (22:26)
[2017-03-02] MEDS: TRICOR PO SCH (22:26)
[2017-03-02] MEDS: TYLENOL PO PRN (22:29)
[2017-03-03] MEDS: DUONEB (A & A) INH SCH ×4 (03:20→20:00)
[2017-03-03] MEDS: TYLENOL PO PRN (04:41)
[2017-03-03] MEDS: MERREM 500 MG in NS 50 ML IV SCH ×3 (05:43→21:53)
[2017-03-03 07:27] LABS: EOS% 1.8 % (0.0-10.0); HEMOGLOBIN 10.3 g/dL (12.0-16.0); MANUAL DIFF NEEDED? NO; MCV 91.8 FL (81-99)
[2017-03-03 07:36] LABS: AGAP 15; BUN 16 mg/dL (8-22); CHLORIDE 103 mmol/L (98-107); COSMO 281; POTASSIUM 3.5 mmol/L (3.5-5.1); SODIUM 140 mmol/L (136-145); TCO2 22 mmol/L (25-35)
[2017-03-03 08:20] LABS: BASO% 0.5 % (0.0-0.8); EOS# 0.14 X1000 (0.0-0.7); HEMATOCRIT 31.5 % (37.0-47.0); IMM GRAN# 0.09 X1000 (0.0-0.04); IMM GRAN% 1.2 % (0.0-0.5); LYMPH# 1.75 X1000 (1.2-3.4); LYMPH% 23.1 % (20.5-51.1); MCHC 32.7 g/dL (33-37); MONO# 1.29 X1000 (0.11-0.59); MPV 10.1 FL (7.4-10.4); NEUT% 56.4 % (42.2-75.2); PLT 240 X1000 (130-400); RBC 3.43 XMIL (4.2-5.4)
--- NOTE | 2017-03-03 08:43 | Diag Imaging Result Document ---
PROCEDURE NAME: CHEST-PORTABLE - 03/03/2017 AP PORTABLE CHEST, 03/03/2017 AT 0500 HOURS: FINDINGS: There are patchy alveolar opacities present in the right lower lobe and possibly the middle lobe. This is somewhat better expanded than on 02/28/2017. The opacities may be slightly worse however. IMPRESSION: Patchy pneumonia right lower lobe and possibly middle lobe.
--- NOTE | 2017-03-03 09:18 | EKG Report ---
Test Performed on : 02/28/2017 5:09:48 PM Test Reason : Canc in error Blood Pressure : / mmHG Vent. Rate : 087 BPM Atrial Rate : 087 BPM P-R Int : 172 ms QRS Dur : 082 ms QT Int : 390 ms P-R-T Axes : 025 -23 -10 degrees QTc Int : 469 ms Normal sinus rhythm. 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
[2017-03-03] MEDS: CALTRATE 600 + D PO SCH (09:33)
[2017-03-03] MEDS: VITAMIN D PO SCH (09:33)
[2017-03-03] MEDS: NORVASC PO SCH ×2 (09:33→21:52)
[2017-03-03] MEDS: FISH OIL CONCENTRATE PO SCH (09:33)
[2017-03-03] MEDS: FOLIC ACID PO SCH (09:33)
[2017-03-03] MEDS: PREDNISONE PO SCH (09:34)
[2017-03-03] MEDS: COREG PO SCH ×2 (09:34→21:52)
[2017-03-03] MEDS: PATIENT'S OWN MED PO SCH (09:34)
[2017-03-03] MEDS: ULTRAM PO PRN ×3 (09:37→23:35)
[2017-03-03] MEDS: DILAUDID IV PRN ×4 (10:30→21:39)
--- NOTE | 2017-03-03 11:54 | PROGRESS NOTE ---
DATE: 03/03/2017 SUBJECTIVE: The patient is definitely much more alert and oriented. According to , who is at bedside, she is back to her baseline. OBJECTIVE: Vital Signs: Temperature 97.9 degrees, heart rate 79, respiratory rate 15, blood pressure 166/83, O2 saturation 97% on 2 L nasal cannula. This is a chronically ill-looking, frail, 76-year-old female lying in bed, in no acute distress. HEENT: Head is normocephalic, atraumatic. Anicteric sclerae and pale conjunctivae. Mucous membranes moist. Neck: Supple. No JVD noted. No carotid bruits. No lymphadenopathy. No thyromegaly. Cardiovascular: S1, S2 heard. No murmurs, gallops, or rubs. Regular rate and rhythm. Respiratory: Coarse breath sounds still present in both bases. Patient is not using any accessory muscles or having work of breathing. Abdomen: Soft, nontender to palpation. Bowel sounds present. No organomegaly. Extremities: No clubbing, cyanosis, or edema. Peripheral pulses present in both legs. Neurological: Patient is more alert and oriented, the patient moves 4 extremities. LABORATORY DATA: White cell count 7.59, hemoglobin 10.3, hematocrit 31.4. Platelets 240,000. BMP is completely unremarkable. ASSESSMENT AND PLAN: 1. Community-acquired pneumonia. Currently the patient is on Rocephin and meropenem and patient is responding to the therapy. Clinically, she is doing much better. At this time, we are going to continue with bronchodilator therapy and supplemental oxygen. Currently she is on 2 L and at home she uses the same amount of oxygen. We will continue with the same management. 2. Bilateral pulmonary embolism. That condition had been diagnosed in her last hospitalization and she is on Xarelto. 3. Severe pulmonary hypertension, aware. 4. Morbid obesity, aware. 5. Infectious encephalopathy, resolved. 6. Hypertension. We will continue with Coreg and Norvasc also was added to her current treatment. Blood pressure is much better. 7. Dyslipidemia. We will continue with TriCor. 8. Physical deconditioning. Physical therapy is working with this patient but definitely she will need to go to rehab, so physical therapy has been consulted and we will see what they have to say. cc: Levon Dawson MD
[2017-03-03] MEDS: XARELTO PO SCH (18:10)
[2017-03-03] MEDS: CRESTOR PO SCH (21:51)
[2017-03-03] MEDS: TRICOR PO SCH (21:51)
[2017-03-03] MEDS: ROCEPHIN 1 GM/NS 1 GM/50 ML IVPB IV SCH (21:52)
[2017-03-03] MEDS: PROTONIX IV SCH (21:53)
[2017-03-03] MEDS: SODIUM CHLORIDE 0.9% INJ SCH (21:53)
[2017-03-04] MEDS: DUONEB (A & A) INH SCH ×4 (03:12→20:12)
[2017-03-04] MEDS: MERREM 500 MG in NS 50 ML IV SCH ×3 (05:02→23:00)
[2017-03-04] MEDS: DILAUDID IV PRN ×5 (05:03→17:25)
[2017-03-04] MEDS: ULTRAM PO PRN ×3 (05:41→23:27)
[2017-03-04 07:08] LABS: MANUAL DIFF NEEDED? NO
[2017-03-04 07:16] LABS: BASO% 0.6 % (0.0-0.8); EOS# 0.16 X1000 (0.0-0.7); EOS% 1.7 % (0.0-10.0); HEMATOCRIT 37.5 % (37.0-47.0); HEMOGLOBIN 12.1 g/dL (12.0-16.0); IMM GRAN# 0.05 X1000 (0.0-0.04); IMM GRAN% 0.5 % (0.0-0.5); LYMPH# 3.17 X1000 (1.2-3.4); LYMPH% 32.7 % (20.5-51.1); MCH 29.4 PG (27-31); MCHC 32.3 g/dL (33-37); MCV 91.2 FL (81-99); MONO# 1.32 X1000 (0.11-0.59); MONO% 13.6 % (1.7-9.3); MPV 10.3 FL (7.4-10.4); NEUT% 50.9 % (42.2-75.2); PLT 273 X1000 (130-400); RBC 4.11 XMIL (4.2-5.4)
[2017-03-04 07:32] LABS: AGAP 14; BUN 16 mg/dL (8-22); CALCIUM 8.7 mg/dL (8.8-10.2); CHLORIDE 100 mmol/L (98-107); COSMO 277; POTASSIUM 3.6 mmol/L (3.5-5.1); SODIUM 138 mmol/L (136-145); TCO2 24 mmol/L (25-35)
[2017-03-04] MEDS: COREG PO SCH ×2 (08:49→23:28)
[2017-03-04] MEDS: FOLIC ACID PO SCH (08:49)
[2017-03-04] MEDS: NORVASC PO SCH ×2 (08:49→23:28)
[2017-03-04] MEDS: PREDNISONE PO SCH (08:49)
[2017-03-04] MEDS: FISH OIL CONCENTRATE PO SCH (08:49)
[2017-03-04] MEDS: CALTRATE 600 + D PO SCH (08:49)
[2017-03-04] MEDS: VITAMIN D PO SCH (08:49)
[2017-03-04] MEDS: PATIENT'S OWN MED PO SCH (08:50)
[2017-03-04] MEDS: XARELTO PO SCH (16:03)
--- NOTE | 2017-03-04 16:20 | PROGRESS NOTE ---
DATE: 03/04/2017 SUBJECTIVE: Patient reports that she is feeling better. The pain is well controlled in the back. OBJECTIVE: Vital Signs: Temperature 97.4 degrees, heart rate 86, respiratory rate 18, blood pressure 170/90, O2 saturation 95% on room air. General Examination: This is a chronically ill- looking and frail 76-year-old female lying in bed, in no acute distress. HEENT: Head is normocephalic, atraumatic. Anicteric sclerae and pale conjunctivae. Mucous membranes moist. Neck: Supple. No JVD noted. No carotid bruits. No lymphadenopathy. No thyromegaly. Cardiovascular: S1, S2 heard. No murmurs, gallops, or rubs. Regular rate and rhythm. Respiratory: Clear bilaterally to auscultation. No work of breathing or using accessory muscles. Abdomen: Coarse breath sounds present in both bases. Patient is not using any accessory muscles or having work of breathing. Abdomen: Soft, nontender to palpation. Bowel sounds present. No organomegaly. Extremities: No clubbing, cyanosis, or edema. Peripheral pulses present in both legs. Neurological: Patient alert and oriented x3. Able to move 4 extremities. Cranial nerves 2-12 grossly normal. LABORATORY DATA: White cell count 9.69, hemoglobin 12.1, hematocrit 37.9, platelets 273,000. BMP unremarkable. ASSESSMENT AND PLAN: 1. Community acquired pneumonia. The patient is on Rocephin on meropenem. Patient has responded to the therapy. Clinically patient is doing much better, using 2 L of oxygen by nasal cannula which is the same amount that she uses at home. We will continue with the same management. 2. Bilateral pulmonary embolism. The patient is currently on Xarelto. 3. Severe pulmonary hypertension. Aware. 4. Morbid obesity. Aware. 5. Infectious encephalopathy. Resolved. 6. Hypertension. We will continue with Coreg and Norvasc. 7. Dyslipidemia. We will continue with the TriCor. 8. Physical deconditioning. Basically we are waiting for a bed in the rehab facility, then she will be discharged. cc: Levon Dawson MD
[2017-03-04] MEDS: CRESTOR PO SCH (23:28)
[2017-03-04] MEDS: TRICOR PO SCH (23:28)
[2017-03-05] MEDS: DUONEB (A & A) INH SCH ×2 (03:40→08:06)
[2017-03-05] MEDS: DILAUDID IV PRN (04:06)
[2017-03-05] MEDS: ROCEPHIN 1 GM/NS 1 GM/50 ML IVPB IV SCH (04:28)
[2017-03-05] MEDS: PROTONIX IV SCH (04:29)
[2017-03-05] MEDS: MERREM 500 MG in NS 50 ML IV SCH ×2 (06:00→13:48)
[2017-03-05] MEDS: COREG PO SCH (08:31)
[2017-03-05] MEDS: CALTRATE 600 + D PO SCH (08:31)
[2017-03-05] MEDS: FISH OIL CONCENTRATE PO SCH (08:31)
[2017-03-05] MEDS: FOLIC ACID PO SCH (08:32)
[2017-03-05] MEDS: PATIENT'S OWN MED PO SCH (08:32)
[2017-03-05] MEDS: PREDNISONE PO SCH (08:32)
[2017-03-05] MEDS: NORVASC PO SCH (08:32)
[2017-03-05] MEDS: VITAMIN D PO SCH (08:32)
--- NOTE | 2017-03-05 12:59 | DISCHARGE SUMMARY ---
ADMISSION DATE: 02/28/2017 DISCHARGE DATE: 03/05/2017 CONSULTATIONS: None. PERTINENT PROCEDURE: 1. Head CT showed no hemorrhage. Chronic microvascular ischemic changes. 2. Chest CT showed right-sided pneumonia. 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 3. Follow-up chest x-ray showed patchy pneumonia right lower lobe and possibly middle lobe. ALLERGIES: The patient has an allergy to penicillin as well as Cipro. MEDICATIONS: She was started on Rocephin and meropenem. She has responded well to therapy. Clinically, she is improved. She will continue on a Z-Alli due to her allergies. Patient uses 2 L nasal cannula at home. HOSPITAL COURSE: Ms. Lo is a 76-year-old female. Past medical history of bilateral pulmonary embolism on Xarelto, hypertension, osteoarthritis, ankylosing spondylitis. Primary Neuropsychology Service Director is Dr. Newton in [place]. Chronic steroid use; on prednisone 7.5 mg for at least the last 8-10 years. She was brought to the ED via EMS after family reported the patient had become altered. According to the , who was at the bedside on admission, he reported that the patient had been extremely lethargic and had slept most of the day of admission and the day prior. She did not recognize her . He also reported a similar problem before back in [place] where they moved from 2 months ago. At that time, the patient had many UTIs. The patient had been afebrile. She was recently admitted to the hospital for shortness of breath and found to have bilateral pulmonary embolism. She is on Xarelto. In the ED, the patient was found to have elevation of her white cell count, and a chest x-ray showed a right lower lobe pneumonia. The patient was admitted to the hospital for encephalopathy as well as a right lower lobe pneumonia. Her head CT was negative. She was started on IV Rocephin as well as breathing treatments and aggressive pulmonary toilet. She was continued on her home Xarelto. Ms. Lo has remained afebrile since admission. Her white count has stabilized. Her blood cultures have been negative. Urinalysis has also been negative. The patient mentally is back to her baseline. She has worked with physical therapy. They suggested rehab. The patient has been accepted to [facility]. She is appropriate for discharge today. Temperature is 97.6 degrees, heart rate 83 , respirations 18, blood pressure 177/91, O2 is 95% on room air. However, she does wear 2 L nasal cannula at home. DISCHARGE DIAGNOSES: 1. Community-acquired pneumonia. 2. Bilateral pulmonary embolism history. The patient will continue on Xarelto. 3. Pulmonary hypertension, aware. 4. Morbid obesity, aware. 5. Patient educated on diet and exercise. 6. Infectious encephalopathy, resolved. 7. Hypertension. Continue the patient's home medications. 8. Dyslipidemia. Continue with TriCor. 9. Physical deconditioning. The patient has worked with physical therapy. [facility]. DISCHARGE DIET: Healthy heart with Ensure t.i.d. DISCHARGE MEDICATIONS: 1. Allopurinol 300 mg p.o. daily. 2. Aspirin 81 mg p.o. daily. 3. Z-Alli. 4. Caltrate 600+ D 1 tablet p.o. daily. 5. Coreg 25 mg p.o. b.i.d. 6. Vitamin D 3000 units p.o. daily. 7. Flexeril 10 mg p.o. t.i.d. 8. TriCor 48 mg p.o. at bedtime. 9. Folic acid 1 mg p.o. daily. 10. Lasix 20 mg p.o. daily. 11. Gabapentin 600 mg p.o. q. 8 hours. 12. Fish oil 1000 mg cap 1 each p.o. daily. 13. Prednisone 7.5 mg p.o. daily. 14. Xarelto 20 mg p.o. daily. 15. Crestor 5 mg p.o. at bedtime. 16. Martinic 2 each p.o. b.i.d. FOLLOWUP: The patient is being discharged to [facility]. She is to continue her full course of p.o. antibiotics and follow up with her primary care physician, Dr. Isabelle Mccracken, after rehab. The patient can return to the ED for any worsening of symptoms. DISCHARGE TIME: 35 minutes. Dictated by TYLER Yeh for Levon Dawson MD cc: Levon Dawson MD [facility] CENTERJaclyn
[2017-03-05 14:30] VITALS: BP 139/68
== END 2017-03-05 16:09 ==
LOC: ED 17:00 → SUATTDRO 21:20 → 3N 21:20
PROVIDERS: ATTEND Internal Medicine

== ENCOUNTER 2017-07-01 13:07 | Inpatient (IN) ==
[2017-07-01] MEDS ORDERED: NS 1,000 ML IV ONE (14:22)
--- NOTE | 2017-07-01 14:42 | EKG Report ---
Test Performed on : 07/01/2017 2:37:07 PM Test Reason : CP Blood Pressure : / mmHG Vent. Rate : 079 BPM Atrial Rate : 079 BPM P-R Int : 208 ms QRS Dur : 074 ms QT Int : 428 ms P-R-T Axes : 006 -21 017 degrees QTc Int : 490 ms Normal sinus rhythm. Septal infarct (cited on or before 21-FEB-2017) Abnormal ECG When compared with ECG of 28-FEB-2017 17:09, Questionable change in initial forces of Anterior leads Nonspecific T wave abnormality, improved in Inferior leads T wave inversion no longer evident in Anterior leads Unconfirmed Result
--- NOTE | 2017-07-01 14:43 | Diag Imaging Result Doc PS360 ---
CHEST-PORTABLE - 07/01/2017 INDICATION: fever TECHNIQUE: COMPARISON: 03/03/2017 FINDINGS: There is moderate cardiomegaly and pulmonary vascular congestion. Stable CABG changes. There is some patchy atelectasis in the right lung base. There are probably trace pleural effusions. IMPRESSION: Cardiomegaly, pulmonary vascular congestion, trace pleural effusions. Electronically signed by Hakan Dallas 07/01/2017 2:41 PM
[2017-07-01 15:13] LABS: URINE CULTURE NEEDED? NO; URINE MICRO REVIEW NEEDED? NO; URINE SOURCE CATH
--- NOTE | 2017-07-01 15:34 | Diag Imaging Result Doc PS360 ---
CT ABDOMEN/PELVIS W/O CONTRAST - 07/01/2017 INDICATION: abd pain, fever TECHNIQUE: A CT dose reduction protocol was used. COMPARISON: Spine CTs from 06/01/2017 FINDINGS: There is some COPD and pulmonary scarring in the lung bases similar to prior. There is severe patient motion artifact. No radiodense renal stones. No hydronephrosis or hydroureter. There is severe diffuse constipation. There is severe rectal fecal impaction with wall thickening and adjacent inflammation. There is severe diverticulosis of the descending and sigmoid colon. No small bowel obstruction. No free air or free fluid. John catheter in the urinary bladder. Uterus is absent. Stable T12 compression fracture. Stable severe degenerative changes of the lumbar spine. IMPRESSION: 1. Constipation with rectal fecal impaction. Severe stercoral proctitis. 2. Severe diverticulosis coli. Electronically signed by Hakan Dallas 07/01/2017 3:32 PM
[2017-07-01 15:37] LABS: BILIRUBIN URINE NEGATIVE (NEGATIVE); BLOOD URINE NEGATIVE (NEGATIVE); COLOR YELLOW; GLUCOSE URINE NEGATIVE (NEGATIVE); LEUKOCYTES URINE NEGATIVE (NEGATIVE); NITRITE URINE NEGATIVE (NEGATIVE); PROTEIN URINE NEGATIVE (NEGATIVE); SP GRAVITY URINE 1.009; TURBIDITY URINE HAZY (CLEAR); UROBILINOGEN URINE NORMAL (NORMAL)
[2017-07-01 15:38] LABS: UR EPITHELIAL CELLS <10 /HPF (<10); URINE BACTERIA NEGATIVE /HPF; URINE RBC <10 /HPF (<10); URINE WBC <10 /HPF (<10)
[2017-07-01 16:36] LABS: MANUAL DIFF NEEDED? NO
[2017-07-01 16:42] LABS: BASO% 0.1 % (0.0-0.8); EOS# 0.13 X1000 (0.0-0.7); EOS% 0.8 % (0.0-10.0); HEMATOCRIT 36.4 % (37.0-47.0); HEMOGLOBIN 11.9 g/dL (12.0-16.0); IMM GRAN# 0.05 X1000 (0.0-0.04); IMM GRAN% 0.3 % (0.0-0.5); LYMPH# 1.72 X1000 (1.2-3.4); LYMPH% 11.1 % (20.5-51.1); MCHC 32.7 g/dL (33-37); MCV 88.8 FL (81-99); MONO# 1.33 X1000 (0.11-0.59); MONO% 8.6 % (1.7-9.3); MPV 10.1 FL (7.4-10.4); NEUT% 79.1 % (42.2-75.2); PLT 274 X1000 (130-400)
[2017-07-01 17:01] LABS: ALBUMIN 3.6 g/dL (3.5-5.0); CALCIUM 9.5 mg/dL (8.8-10.2); POTASSIUM 3.1 mmol/L (3.5-5.1); TOTAL BILIRUBIN 0.8 mg/dL (0.20-1.00); TOTAL PROTEIN 6.1 g/dL (6.3-8.3)
[2017-07-01] MEDS ORDERED: FLAGYL 500 MG/NS 500 MG/100 ML IVPB IV ONE (17:26)
[2017-07-01] MEDS ORDERED: KLOR-CON PO ONE (17:30)
--- NOTE | 2017-07-01 17:39 | PROVIDER DOCUMENTATION ---
This chart was entered by Kaylen Conrad Scribe, acting as scribe for Iggy Singh PA. HPI-Abdominal Pain/GI Problem - General Chief Complaint: Abdominal Pain Stated Complaint: abd pain, n/v Time Seen by Provider: 07/01/17 14:16 Source: patient Allergies/Adverse Reactions: Patient Allergies Allergy/AdvReac Type Severity Reaction Status Date / Time Penicillins Allergy Intermediate RASH Verified 07/01/17 14:37 ciprofloxacin [From Cipro] Allergy Unknown contraindicated Verified 07/01/17 14: 37 in MG ciprofloxacin HCl * Allergy Unknown contraindicated Verified 07/01/17 14:37 [From Cipro] in MG Home Medications: Home Medication List Medication Instructions Recorded Confirmed Last Taken Type Allopurinol 300 mg PO DAILY 02/16/17 07/01/17 02/27/17 History Aspirin [Lo-Dose Aspirin EC] 81 mg PO DAILY 02/16/17 07/01/17 02/27/17 History Calcium Carbonate/Vit D3 [Caltrate 1 tab PO DAILY 02/16/17 07/01/17 02/27/17 History 600 + D] Carvedilol [Coreg] 25 mg PO BID 02/16/17 07/01/17 02/27/17 History Cholecalciferol (Vit D3) [Vitamin 1,000 unit PO DAILY 02/16/17 07/01/17 History D3] Fenofibrate [Tricor] 48 mg PO QHS 02/16/17 07/01/17 02/27/17 History Folic Acid 1 mg PO DAILY 02/16/17 07/01/17 02/27/17 History Furosemide [Lasix] 20 mg PO DAILY 02/16/17 07/01/17 02/27/17 History Gabapentin 600 mg PO Q8H 02/16/17 07/01/17 02/27/17 History [place]-3 Fatty Acids/Fish Oil [Fish 1 each PO DAILY 02/16/17 07/01/17 02/27/17 History Oil 1,000 mg Capsule] Prednisone 7.5 mg PO DAILY 02/16/17 07/01/17 02/27/17 History Rosuvastatin Calcium [Crestor] 5 mg PO HS 02/16/17 07/01/17 02/27/17 History T-1 Vitamin [id number] Factor 2 each PO DAILY 02/16/17 07/01/17 02/27/17 History [Stephenic] Rivaroxaban [Xarelto] 20 mg PO DAILY #30 tablet 02/18/17 07/01/17 02/27/17 Rx - History of Present Illness-ABD Nature of Presenting Problems: 76 yo F presents to ED with cc of epigastric pain with nausea and vomiting x 1 year. Pt was evaluated by her 's home health care provider today, who recommended she come to ED. Upon arrival to ED, pt is in no apparent distress and is oriented to person and place but not time. Abdominal Pain Onset Location: reports: epigastric Pain Radiation: reports: no radiation Severity in ED: reports: moderate Onset/Duration: reports: gradual, other (1 year) Timing: reports: still present, intermittent Associated Symptoms: reports: nausea, vomiting. denies: fever/chills, swelling/ mass in abdomen Review of Systems - Adult - REVIEW OF SYSTEMS - ADULT Constitutional: reports: no symptoms reported. denies: chills, fever Eyes: reports: no symptoms reported. denies: blurred vision, double vision Ears, Nose, Mouth & Throat: reports: no symptoms reported. denies: nose pain, throat pain Cardiovascular: reports: no symptoms reported. denies: chest pain, palpitations Respiratory: reports: no symptoms reported. denies: cough, shortness of breath Gastrointestinal: reports: abdominal pain (epigastric), nausea, vomiting Genitourinary: reports: no symptoms reported. denies: dysuria, flank pain Musculoskeletal: reports: no symptoms reported. denies: muscle aches, muscle weakness Integumentary: reports: no symptoms reported. denies: hives, rash Neurological: reports: other (oriented to person and place but not time). denies: loss of balance, syncope Psychiatric: reports: no symptoms reported. denies: anxiety, depression Endocrine: reports: no symptoms reported. denies: cold intolerance Hematologic/Lymphatic: reports: no symptoms reported. denies: blood clots, low blood count Allergic/Immunologic: reports: no symptoms reported. denies: allergic reactions , eczema All Other Systems: Reviewed and Negative Past History - Adult - PAST MEDICAL HISTORY-ADULT Review of Records: reports: Old Records Reviewed, Nursing Assessment Review, Medications Reviewed Major Childhood Illnesses: reports: denies history Cardiovascular: reports: HTN, hyperlipidemia Respiratory: reports: denies history Gastrointestinal: reports: GERD Obstetrical/Gynecological: reports: denies history Genitourinary: reports: denies history Musculoskeletal: reports: denies history Neurological: reports: denies history Endocrine/Immune: reports: denies history Other Conditions: reports: denies history - PRIOR SURGERIES/PROCEDURES Surgical/Procedure History: reports: hysterectomy, tonsillectomy, joint replacement - IMMUNIZATION STATUS Childhood Immunizations: See Nurse Assessment Flu Vaccine: See Nurse Assessment - FAMILY HISTORY Family History: reviewed, not pertinent Physical Exam-General - PHYSICAL EXAM-ADULT Initial Vital Signs Reviewed: Yes - CONSTITUTIONAL General Appearance: appears well, alert, no apparent distress - EYES Eyes: PERRL/EOMI, pink conjunctivae - HEAD, EARS, NOSE, MOUTH & THROAT HENMT: normocephalic/atraumatic, moist mucous membranes - NECK Neck: non-tender, full range of motion, supple - RESPIRATORY Respiratory: chest non-tender, lungs clear, normal breath sounds - CARDIOVASCULAR Cardiovascular: normal peripheral pulses, regular rate, rhythm - GASTROINTESTINAL (ABDOMEN) Abdominal Exam: normal bowel sounds, soft, tenderness (epigastric, mild). negative: guarding - LYMPHATIC Lymphatic: no adenopathy - MUSCULOSKELETAL Back Exam: normal inspection, no CVA tenderness, no vertebral tenderness Extremity: normal range of motion, non-tender, normal gait - SKIN Integumentary: normal color, normal turgor - NEUROLOGIC Neurologic: skinning machine feeder II-XII nml as tested, grossly normal, no motor/sensory deficits , other (no focal neurologic deficit.) - PSYCHIATRIC Psych/Mental Status: normal mood/affect, normal thought content, normal thought process, other (oriented to person and place but not time.) Progress - PLAN OF CARE/RESULTS Progress/Plan/Lab Results: Vital Signs - 8 hr 07/01/17 13:25 Temperature 100 F H Pulse Rate 73 Respiratory Rate 18 Blood Pressure 195/84 O2 Sat by Pulse Oximetry 91 L Orders Category Date Time Status Saline Loc DIRECTED Care 07/01/17 14:22 Active NPO Diet 07/01/17 14:22 Active cxr [CHEST-PORTABLE] [RAD] Stat Exams 07/01/17 14:30 Ordered BLOOD CULTURE [BLDCUL] Stat Lab 07/01/17 14:22 Uncollected CBC WITH ELECTRONIC DIFF [HEME] Stat Lab 07/01/17 14:22 Uncollected COMPREHENSIVE METABOLIC PANEL [CHEM] Stat Lab 07/01/17 14:22 Uncollected LACTATE, PLASMA [CHEM] Stat Lab 07/01/17 14:22 Uncollected LIPASE [CHEM] Stat Lab 07/01/17 14:22 Uncollected URINALYSIS W/POSS RFLX CULT-1 [URINALYSIS] Stat Lab 07/01/17 14:22 Uncollected 0.9% Sodium Chloride Inj [Ns] 1,000 ml Med 07/01/17 14:22 Active IV 999 mls/hr Medical decision making: pt has stercoral proctitis and fecal impaction on CT. Will admit for IV antibiotics, disimpactions and enemas. Case and plan of care discussed with Dr. Haas. mixer attendant at bedside says pt has had problems with certain penicillin abx. She denies history of anaphylaxis. Result Diagrams: 07/01/17 16:32 07/01/17 16:32 - XRAY 1 XRAY Study: Chest Impression: Abnormal (FINDINGS: There is moderate cardiomegaly and pulmonary vascular congestion. Stable CABG changes. There is some patchy atelectasis in the right lung base. There are probably trace pleural effusions.) Comparison with other Films: changes noted (COMPARISON: 03/03/2017) XRAY Interpretation: Cardiomegaly, pulmonary vascular congestion, trace pleural effusions - CT/MRI 1 CT Study: Abdomen, Pelvis Impression: Abnormal (FINDINGS: There is some COPD and pulmonary scarring in the lung bases similar to prior. There is severe patient motion artifact. No radiodense renal stones. No hydronephrosis or hydroureter. There is severe diffuse constipation. There is severe rectal fecal impaction with wall thickening and adjacent inflammation. There is severe diverticulosis of the descending and sigmoid colon. No small bowel obstruction. No free air or free fluid. John catheter in the urinary bladder. Uterus is absent. Stable T12 compression fracture. Stable severe degenerative changes of the lumbar spine. IMPRESSION: 1. Constipation with rectal fecal impaction. Severe stercoral proctitis. 2. Severe diverticulosis coli.) Comparison with other Films: changes noted (COMPARISON: Spine CTs from 2016) CT Results: constipation w/rectal fecal impaction; stercoral proctitis (rad) - CONSULTS/PCP/HOSPITALIST Notification #1 *Consult/PCP/Hospitalist*: Dr. Novak Time Discussed: 17:23 Consult Disposition: Admit (will see as staffing consultant) #2 Consult: Kumar CONCRETE BLOCK [employer]AYER for Dr. Galicia Time Discussed: 17:25 Consult Disposition: Admit Departure - Departure Date of Disposition Decision: 07/01/17 Time of Disposition Decision: 17:34 DIAGNOSIS: Stercoral ulcer of rectum, Hypokalemia Leukocytosis Qualifiers: Leukocytosis type: unspecified Qualified Code(s): D72.829 - Elevated white blood cell count, unspecified Disposition: ADMITTED INPATIENT 09 Certified Medical Emergency: Emergent Condition: Stable Referrals and Follow-Ups: None,PCP [Primary Care Provider] - - Critical Care Note This patient required my direct & personal management of CC.: No Attestation - Physician/ BAM Attestation Patient care was provided by Advanced Practice Provider:: Yes Advanced Practice Provider:: Iggy Singh Advanced Practice Provider documentation review:: The Mid-level provider documentation, treatment plan and medical decision making was reviewed by the physician who agrees with all treatment and medical decision making by the MLP. The physician spent face to face time with patient:: No Advanced Practice Provider documentation review:: Supervising physician onsite and consulted in the evaluation and care of this patient. The physician did not have a face to face encounter with the patient. This chart was documented by the indicated scribe, (Kaylen Conrad, Catie) and accurately reflects the services I performed and decisions made by me, Iggy Singh PA, as attested by the provider's signature.
[2017-07-01] MEDS ORDERED: MAXIPIME 2 GM/NS 2 GM/100 ML IVPB IV ONE (17:55)
[2017-07-01] MEDS ORDERED: LASIX IV ONE (20:53)
[2017-07-01] MEDS ORDERED: ASPIRIN PO SCH (21:00)
[2017-07-01] MEDS ORDERED: APRESOLINE IV ONE (21:11)
[2017-07-01] MEDS ORDERED: OFIRMEV 1000 MG/ISOTONIC SOLN 1,000 MG/100 ML BOTTLE IV SCH (21:15)
--- NOTE | 2017-07-01 21:35 | Diag Imaging Result Doc PS360 ---
CT HEAD W/O CONTRAST - 07/01/2017 INDICATION: expressive aphasia sudden TECHNIQUE: A CT dose reduction protocol was used. COMPARISON: None FINDINGS: There is stable moderate cerebral white matter chronic microvascular disease. No intracranial mass or hemorrhage. The skull is intact. There is chronic sinusitis of the right sphenoid sinus. IMPRESSION: Sinusitis. No acute intracranial abnormality. Electronically signed by Hakan Dallas 07/01/2017 9:32 PM
--- NOTE | 2017-07-01 22:05 | HISTORY AND PHYSICAL ---
PATIENT OF: Isabelle Mccracken MD REASON FOR ADMISSION: Lower abdominal pain for the last 2 days. HISTORY OF PRESENT ILLNESS: Ms. Kim Lo is a 76-year-old lady who is an extremely poor historian. She was last seen here in this facility for community-acquired pneumonia in February. She stays at home with her and I believe 24-hour around the clock care. Her is bed-bound. She comes in today because the last 2 days she developed sudden suprapubic pain which she says is localized. It is very sharp. Oddly enough, this patient midway in my interview is not able to give any history. She started having some degree of expressive aphasia, using malapropisms sometimes. However, she will follow commands appropriately, but as we went on, she became a little confused. Thus, this history is very limited for this reason. Prior to her acute confusion, she denied any fever or chills, diarrhea. She denied any genitourinary complaints. No cardiorespiratory complaints. She had been to see a spine surgeon a week ago for future repair of a vertebral compression fracture, but the plans at this time are still pending. The last part of the history was obtained from one of her paid caregivers at the bedside who she honestly admitted not knowing much of the history. She did inform me that the reason why she was sent to the ER was because her blood pressure was very high and she was in a lot of pain. Her blood pressure was systolic 190s to 200s from her recollection. This was on the advice of her home health nurse. REVIEW OF SYSTEMS: Very limited due to the inability to obtain any meaningful information from the patient. She does complain of chronic back pain which she says has not gotten any worse. She oddly enough denies any constipation or abdominal distention. SURGICAL HISTORY: From old records, thymectomy for myasthenia gravis, hysterectomy, tonsillectomy and adenectomy. FAMILY HISTORY: Could not be obtained for obvious reasons. PAST MEDICAL HISTORY: Bilateral pulmonary emboli. Hypertension. Osteoarthritis. Ankylosing spondylitis. Chronic steroid use which I believe may have caused patient vertebral our compression fractures. ALLERGIES: Allergic to penicillin. Because she had myasthenia gravis, she was told not to take ciprofloxacin for some reason. SOCIAL HISTORY: Lives her . Does smoke, drink or use drugs. LABORATORY WORK/DIAGNOSTICS: EKG showed normal sinus rhythm with old septal infarct. Nonspecific ST and T-wave changes are noted. There is pseudonormalization of T-waves in the anterior leads. White count 16,000, hemoglobin and hematocrit 12 and 36, platelets 274,000, neutrophils 79. Potassium 3.1. BUN 10, creatinine 1. Glucose 106. Troponin is negative. Lactate 1.1. Lipase is normal. Urinalysis is clean. Chest x-ray shows mild pulmonary vascular congestion with trace pleural effusion and cardiomegaly. CT scan shows severe stercoral proctitis and severe diverticulitis coli. Severe fecal impaction. CK was also negative. PHYSICAL EXAMINATION: VITAL SIGNS: Blood pressure was 216/110, heart rate was 79, respirations 18, temperature is a 100, 92% on room air. GENERAL: She is an elderly woman, who is alert, but only oriented to person and place, but not to time. HEENT: Head is normocephalic, atraumatic. Eyes SANDEE, EOMI. Cranial nerves 2- 12, although limited, exam is grossly normal. ENT and oropharyngeal examination is grossly normal. No central cyanosis. NECK: Supple. No JVD or carotid bruit. No thyromegaly. NEUROLOGICAL: For most part is no gross motor deficits appreciated. It was very hard to get the patient to follow basic instructions as the exam went on. Power I would be estimated to be 4/5 in all extremities. There she is anicteric, not pale. Patient does have a moderate degree of expressive aphasia. CHEST: Clear to auscultation. Good air entry in both lung leggett. CARDIOVASCULAR: First and second heart sounds heard. Soft 2/6 ejection systolic murmur heard. Rhythm is regular. ABDOMEN: Mildly protuberant and distended. There is notable tenderness in the suprapubic and left lower quadrant area. There is exquisite rebound tenderness, but no guarding. Bowel sounds are hypoactive. RECTAL: Examination deferred at this time. EXTREMITIES: Patient has good pulses distally in all extremities. No edema, no clubbing or peripheral cyanosis. SKIN: Intact. No breakdown lesion. MUSCULAR: Exam is grossly normal. ASSESSMENT: 1. Abdominal pain secondary to severe stercoral proctitis from fecal impaction. 2. Expressive aphasia with visible elevated blood pressure. Cannot rule out transient ischemic attack versus cerebrovascular accident . 3. Uncontrolled hypertension ? cerebrovascular accident or secondary to intense pain. 4. Bilateral pulmonary emboli. 5. Osteoarthritis. Chronic steroid use, reason unknown. 6. Ankylosing spondylitis. 7. Pernicious anemia. 8. Severe diverticulosis. 9. Mild pulmonary congestion, etiology unknown. Could be secondary to hypertensive heart disease. PLAN: At this time, what is more pressing than her stercoral proctitis to me is the possibility that this may have had various cerebrovascular accident from elevated blood pressure secondary to the pain from her stercoral proctitis. We will give patient pain medication Ofirmev. There is some question that she may be sensitive to opioids, but there is no allergy listed. If Ofirmev does not help with her pain, then very low-dose morphine will be administered. We will replete electrolyte derangements. As I stated earlier, I am more concerned about her recent expressive aphasia and the markedly elevated blood pressure which could be as a consequence of a stroke or the cause of the stroke. We will start patient on a baby aspirin. Optimize her statin therapy. Order stat CT scan to and if it is negative, we will proceed with MRI and consult Neurology to see patient. Regarding the proctitis, we will start enemas and suppositories and start empirically on antibiotics. Consult Gastroenterology to see. The patient does have some degree of mild congestive heart failure noted on her chest film. We will give of a 1 time dose of IV Lasix. The patient denies any cardiorespiratory symptoms, however. We will continue patient's rivaroxaban which she taking for prior pulmonary embolus. Regarding elevated blood pressure , we will not treat this for now unless the patient is pain free and blood pressure is elevated. We will give patient a 1 time dose of hydralazine if systolic blood pressure is greater than 200 which it is at this point in time. Hold blood pressure medication if SBP for now is less than 180 until stroke has been ruled out so as not to extend potential ischemic penumbra and worsen neurological symptoms. cc: Jace Maldonado MD [facility]ITALJaclyn
[2017-07-02] MEDS ORDERED: LACTULOSE PO ONE (02:17)
[2017-07-02] MEDS ORDERED: MORPHINE IV PRN (02:17)
[2017-07-02] MEDS ORDERED: POTASSIUM CHLORIDE 20 MEQ/SWI 20 MEQ/100 ML IVPB IV ONE (02:17)
[2017-07-02] MEDS ORDERED: FLEET MINERAL OIL ENEMA PR ONE (02:17)
[2017-07-02] MEDS: ZOFRAN IV PRN (04:00)
[2017-07-02] MEDS: FLAGYL 500 MG/NS 500 MG/100 ML IVPB IV SCH ×4 (04:00→23:18)
[2017-07-02] MEDS: COREG PO SCH ×3 (04:02→20:32)
[2017-07-02] MEDS ORDERED: NEURONTIN PO SCH (05:00)
[2017-07-02 06:27] LABS: MANUAL DIFF NEEDED? NO
[2017-07-02 06:35] LABS: BASO% 0.1 % (0.0-0.8); EOS# 0.12 X1000 (0.0-0.7); EOS% 0.8 % (0.0-10.0); HEMATOCRIT 38.6 % (37.0-47.0); HEMOGLOBIN 12.7 g/dL (12.0-16.0); IMM GRAN# 0.06 X1000 (0.0-0.04); IMM GRAN% 0.4 % (0.0-0.5); LYMPH# 1.54 X1000 (1.2-3.4); MCH 28.7 PG (27-31); MCHC 32.9 g/dL (33-37); MCV 87.1 FL (81-99); MONO# 1.57 X1000 (0.11-0.59); MONO% 10.2 % (1.7-9.3); MPV 10.5 FL (7.4-10.4); NEUT% 78.5 % (42.2-75.2); PLT 305 X1000 (130-400); RBC 4.43 XMIL (4.2-5.4)
[2017-07-02 06:59] LABS: ALBUMIN 3.8 g/dL (3.5-5.0); POTASSIUM 3.1 mmol/L (3.5-5.1); TOTAL BILIRUBIN 0.87 mg/dL (0.20-1.00); TOTAL PROTEIN 7.1 g/dL (6.3-8.3)
[2017-07-02] MEDS ORDERED: LASIX PO SCH (09:00)
--- NOTE | 2017-07-02 09:09 | ED EKG INTERP ---
This chart was entered by Kaylen Conrad Scribe, acting as scribe for Nilda Haas MD. EKG Interpretation - EKG Time of EKG reading by physician:: 14:37 EKG Read and Signed by:: Nilda Haas EKG Interpretation (*Must complete 3 of following elements*): Abnormal Rate: 79 Rhythm: NSR [place]: normal Comments: septal infarct, age undetermined Attestation - Physician/ BAM Attestation Patient care was provided by Advanced Practice Provider:: No The physician spent face to face time with patient:: Yes Advanced Practice Provider documentation review:: Supervising physician onsite and consulted in the evaluation and care of this patient. The physician did have a face to face encounter with the patient. This chart was documented by the indicated scribe, (Kaylen Conrad Scribe) and accurately reflects the services I performed and decisions made by me, Nilda Haas MD, as attested by the provider's signature.
[2017-07-02] MEDS: XARELTO PO SCH (09:30)
[2017-07-02] MEDS: VICON-C PO SCH (09:32)
[2017-07-02] MEDS: ASPIRIN EC PO SCH (09:32)
[2017-07-02] MEDS: PREDNISONE PO SCH (09:35)
--- NOTE | 2017-07-02 09:45 | Diag Imaging Result Doc PS360 ---
EXAM: MRI BRAIN W/O CONTRAST HISTORY: expressive dysphasia TECHNIQUE: MRI of the brain; T1 sagittal and axial, T2, FLAIR, and DWI axial. Gradient echo coronal. COMMENT: No previous MRI studies are available for comparison. There are numerous areas of increased T2-weighted signal intensity in the subcortical and periventricular white matter of both hemispheres consistent with chronic microvascular change. This includes the anterior external capsule regions. There is no evidence of bleed or abnormal extra-axial fluid collection. There is slight increase in T2-weighted signal intensity in the aydin centrally. There is no evidence of restricted diffusion to suggest acute ischemia. There is no evidence of bleed or abnormal extra-axial fluid collection. IMPRESSION: Extensive chronic microvascular change. No definite evidence of acute disease. Electronically signed by Jay Jay Nielsen 07/02/2017 9:43 AM
--- NOTE | 2017-07-02 13:44 | CONSULTATION ---
DATE OF CONSULTATION: 07/02/2017 HISTORY OF PRESENT ILLNESS: Ms. Lo is 76 years old and she has reportedly become unable to communicate with language. I have reviewed the history recorded in the computer record. Attentive transitions rn care coordinator is a caregiver for patient's , but she knows the patient. She reports patient is typically awake, alert, attentive, active. She is limited by back pain. She takes her medicines unsupervised. She has significant baseline forgetfulness. This transitions rn care coordinator has known the patient for the last few months and is not certain how long forgetfulness was present prior to that. Director Erp is not aware of previous serious head injury, stroke, seizure, other brain event. Two days ago, transitions rn care coordinator reports patient seemed sleepy through the day which was not typical. Yesterday, patient was not as talkative as usual, but was communicating with language, mostly requesting her pain medicines. While she was evaluated here, she seemed to become unable to communicate with language. She has not had documented focal motor deficit. She has not had unconsciousness or altered awareness apparent. Workup includes brain MRI reported to show extensive white matter changes, but nothing focal or acute. Vital sign record shows systolic blood pressure 102 once, otherwise 160s to 210s. There is reported past history of pneumonia several months ago. She reported abdominal and suprapubic pain recently. There is recorded past history of bilateral pulmonary emboli, hypertension, osteoarthritis, ankylosing spondylitis. There is mention in the admission note of myasthenia gravis, but I am not certain about that. PHYSICAL EXAMINATION: On exam now, Ms. Lo is consistently awake and alert. She seemed attentive at times and not attentive at times. She did not follow simple commands with vigorous repeat request initially, but later followed simple commands consistently and quickly. She used her arms and legs purposefully. She was not attentive to formal request for motor and sensory testing. Tone is equal in the limbs. I did not test her gait. She had equal withdrawal with noxious stimulation over each limb. She did not relax for good reflex check. She has full extraocular movements spontaneously and with passive head turning. Facial motility seems diminished bilaterally, sometimes a little bit more prominent on the right, but that was not consistent. Tongue is midline. Head and neck are unremarkable. IMPRESSION: 1. Question of dysphasia. When I initially began to examine her, she seemed clearly globally dysphasic. Later, that was not the case. I do not see definite accompanying focal motor deficit. Recent negative MRI is reassuring. 2. With possible fluctuating level of function, I am concerned about subclinical seizure. She will have electroencephalogram and further plans will depend on that report. 3. Clear history of baseline cognitive impairment. In that setting, relatively minor toxic or metabolic problems might be associated with significant encephalopathy, and she may have some psychosis causing her to rapidly change her direction of gaze and to respond more consistently at sometimes than others. We might consider cautious trial with neuroleptic medicine when workup is completed. We might consider adding cholinesterase inhibitor later, but she presented with some possible gastrointestinal complaints, and I would not add cholinesterase inhibitor until gastrointestinal workup is complete. 4. There is report that she is not supervised with medicines at home. The computer record shows home medicine list does not include anything that likely would be associated with encephalopathy or seizure, either with inadvertent overdose or with missing doses. Medicine list includes prednisone and steroid psychosis might be a consideration, but that is not certain. Medicine list may not be complete since I do not see any specific pain medicine listed and transitions rn care coordinator reports patient had been requesting extra pain medicine doses yesterday. Thanks for asking me to see Ms. Lo. cc: MD TED Marie III
[2017-07-02] MEDS: ROCEPHIN 1 GM in NS 50 ML IV SCH (14:19)
[2017-07-02] MEDS ORDERED: MAGNESIUM SULFATE 2 GM/S.W.I. 2 GM/50 ML IVPB IV ONE (16:31)
[2017-07-02] MEDS ORDERED: RELISTOR SUBQ ONE (16:47)
--- NOTE | 2017-07-02 17:09 | PROGRESS NOTE ---
DATE: 07/02/2017 SUBJECTIVE: Today, Ms. Lo referred that she was doing fine. She did not seem to be very cooperative with interrogation, but she was able to say she was able to say yes and no to certain questions and she was clearly able to say she was doing fine. OBJECTIVE: Vital signs: Blood pressure is 180/70, pulse of 87, respirations 20 , temperature is 98.7 degrees. General: Ms. Lo is a 76-year-old female. She is in bed. She did not seem to be in any remarkable distress. HEENT: Mucosa is pink, slightly dry. Anicteric and acyanotic. Neck: Supple. Chest: Good air entry bilaterally. No crepitations. No rhonchi. Cardiovascular: Regular rate and rhythm. No murmurs, no rubs. No gallops. Abdomen: Soft. Extremities: No pedal edema. 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 She prefers not to open her eyes, but when I shine a light in her eyes, the pupils are equal and reactive. Patient is able to withdraw very actively to painful stimulation in the lower extremities, and as I said, she was able to clearly state that she is doing fine. LABORATORY DATA: WBC is 15.37, hemoglobin is 12.7, platelet count 305,000. Chemistry is reviewed. Sodium is 137, potassium is 3.1, creatinine is 1.7, the rest of chemistry is unremarkable. Urine analysis is normal. DIAGNOSTIC STUDIES: 1. A CT scan of the abdomen and pelvis was done which shows constipation with rectal fecal impaction, severe stercoral proctitis, severe diverticulosis coli. 2. MRI of the brain which was done this morning shows extensive chronic microvascular changes. No definite evidence of acute disease. ASSESSMENT: 1. Altered mental status on presentation. Etiology is not apparently clear. There is a history that patient has been abusing a lot of prescription drugs, including narcotics and sedatives, and I am afraid that this is probably the cause of her altered mentation. For now, we will withhold all narcotics and we will hold her gabapentin for now. 2. Clinical dehydration. I will also withhold the Lasix for now and give the patient some gentle hydration and re-evaluate her hydration status for tomorrow. 3. Severe constipation with fecal impaction likely secondary to narcotic abuse. We will address this more symptomatically. I will give the patient a dose of methylnaltrexone. 4. Stercoral proctitis. Patient has been covered with antibiotics. 5. Severe diverticulosis coli. CT did not really show any signs of diverticulitis. Patient is, however, covered with antibiotic because she has slightly elevated white count. 6. Chronic microvascular changes on MRI consistent with the fact that the patient probably has vascular dementia. In general, I think Ms. Lo is a little better. She was able to say a few words to me this afternoon. We are going to continue with her medications. We will withhold the narcotics. We will give her a dose of methylnaltrexone, gently hydrate her and re-evaluate her for tomorrow morning. The MRI is quite reassuring. There are no acute findings. cc: Cale Garcia MD MTDD
[2017-07-02] MEDS: NS 1,000 ML IV SCH (17:48)
[2017-07-02] MEDS: POTASSIUM CHLORIDE 20 MEQ/SWI 20 MEQ/100 ML IVPB IV SCH ×2 (19:56→20:33)
[2017-07-02] MEDS: CRESTOR PO SCH (20:32)
[2017-07-03 00:49] LABS: UR AMPHETAMINES QUAL NONE DETECTED (NONE DETECT); UR BARBITUATES QUAL NONE DETECTED (NONE DETECT); UR BENZODIAZEPIN QUAL NONE DETECTED (NONE DETECT); UR CANNABINOIDS QUAL NONE DETECTED (NONE DETECT); UR COCAINE QUAL NONE DETECTED (NONE DETECT); UR METHADONE QUAL NONE DETECTED (NONE DETECT); UR OPIATES QUAL PRESUMPTIVE POSITIVE (NONE DETECT); UR OXYCODONE QUAL NONE DETECTED (NONE DETECT); UR PCP QUAL NONE DETECTED (NONE DETECT)
--- NOTE | 2017-07-03 03:50 | CONSULTATION ---
DATE OF CONSULTATION: 07/02/2017 PRIMARY CARE PROVIDER: Isabelle Mccracken M.D. REFERRING PHYSICIAN: Jace Maldonado M.D. INDICATION FOR CONSULTATION: 1. Low abdominal pain. 2. CT scan that is positive for opioid-induced constipation. 3. Proctitis, secondary to the constipation. 4. Extensive diverticulosis. HISTORY OF PRESENT ILLNESS: The patient is a 76-year-old white female who is an extremely poor historian. She lives at home with her , and is normally very active. Home health care came to check on her , and found the patient to be confused. Because of her confusion, she was transported to the emergency room at the recommendation of the home health nurse. She was found to have hypertension. Because she also complained of abdominal pain, a CT scan was obtained. It is remarkable for constipation, with a rectal fecal impaction, severe proctitis, and severe diverticulosis. Because of her obstipation and low abdominal pain, we were asked to participate in her care. PAST MEDICAL HISTORY: 1. Myasthenia gravis. 2. Community-acquired pneumonia. 3. Bilateral pulmonary emboli. 4. Hypertension. 5. Osteoarthritis. 6. Ankylosing spondylitis. 7. Chronic steroid use. 8. Vertebral fractures. 9. Poor historian. PAST SURGICAL HISTORY: 1. Thymoma from myasthenia gravis. 2. Hysterectomy. 3. Tonsillectomy. 4. Adenectomy. FAMILY HISTORY: Unobtainable. REVIEW OF SYSTEMS: Unobtainable. The patient only answers "yes" to simple questions. MEDICATION ALLERGIES: 1. Penicillin. 2. The patient was told to avoid ciprofloxacin, according to the chart. SOCIAL HISTORY: The patient lives with her , who is bed-bound. She is normally very active. According to the computer, her social history is negative for alcohol, tobacco, and recreational drug use. PHYSICAL EXAMINATION: Vital Signs: Blood pressure is 186/79, pulse 83, respirations 16, temperature of 98.2 degrees. HEENT: Unremarkable. Pulmonary: Lungs are clear to auscultation, with normal expiratory effort. Cardiovascular: Reveals regular rate and rhythm , with a 2/6 systolic ejection murmur. No gallops or rubs. Abdominal: Reveals normoactive bowel sounds. The abdomen is diffusely tender and slightly protuberant. There is a significant amount of left lower quadrant and suprapubic tenderness, but no rebound or guarding. Extremities: Negative for cyanosis, clubbing, or edema. OBJECTIVE DATA: Remarkable for hemoglobin of 12.7, hematocrit of 38.6, and a white count of 15.37. She has 305,000 platelets. Sodium is 137, potassium 3.1, chloride 96, CO2 of 25, BUN 12, creatinine 1.1, with a glucose of 145. Calcium is 10.0, total bilirubin 0.87, AST 12, ALT 7, alkaline phosphatase 65, total protein 7.1, albumin 3.8, and a TSH of 2.24. IMPRESSION: 1. Constipation. 2. Fecal impaction. 3. Proctitis. 4. Diverticulosis. 5. Abdominal pain. RECOMMENDATIONS: 1. The patient is currently receiving laxatives and enemas. I recommend continued conservative management. 2. Continue suppositories as needed. 3. Begin Movantik 12.5 mg 1 p.o. daily. 4. One can consider the addition of lactulose as needed for refractory constipation, if the Movantik is not effective. 5. One can consider endoscopic intervention. However, the patient is on Xarelto , and therefore, I would delay endoscopic intervention until such time that it is deemed clinically important, to avoid reversing her anticoagulation unnecessarily. 6. She may benefit from Anusol HC suppositories b.i.d. for 7 days once we are able to clear the fecal impaction. 7. Additional recommendations to follow based on her clinical course. cc: MD Isabelle Díaz MD [place] P. Akinsoto, MD Jeanette Keith, MD MTDD
[2017-07-03] MEDS: FLAGYL 500 MG/NS 500 MG/100 ML IVPB IV SCH ×4 (04:39→23:35)
[2017-07-03] MEDS: NS 1,000 ML IV SCH (05:13)
[2017-07-03] MEDS: ZOFRAN IV PRN ×2 (05:40→23:48)
[2017-07-03] MEDS: MOVANTIK PO SCH (06:20)
[2017-07-03 06:49] LABS: MANUAL DIFF NEEDED? NO
[2017-07-03 06:58] LABS: BASO% 0.1 % (0.0-0.8); EOS# 0.06 X1000 (0.0-0.7); EOS% 0.4 % (0.0-10.0); HEMATOCRIT 36.3 % (37.0-47.0); IMM GRAN# 0.04 X1000 (0.0-0.04); IMM GRAN% 0.2 % (0.0-0.5); LYMPH% 10.8 % (20.5-51.1); MCH 28.9 PG (27-31); MCHC 33.1 g/dL (33-37); MCV 87.5 FL (81-99); MONO# 1.78 X1000 (0.11-0.59); MONO% 10.7 % (1.7-9.3); MPV 10.4 FL (7.4-10.4); NEUT% 77.8 % (42.2-75.2); PLT 267 X1000 (130-400); RBC 4.15 XMIL (4.2-5.4)
[2017-07-03 07:34] LABS: AGAP 22; ALBUMIN 3.3 g/dL (3.5-5.0); ALKALINE PHOSPHATASE 62 U/L (32-104); BUN 18 mg/dL (8-22); CALCIUM 9.6 mg/dL (8.8-10.2); CHLORIDE 96 mmol/L (98-107); COSMO 283; GOT 11 U/L (10-30); GPT 6 U/L (10-36); POTASSIUM 3.1 mmol/L (3.5-5.1); SODIUM 140 mmol/L (136-145); TCO2 22 mmol/L (25-35); TOTAL BILIRUBIN 0.37 mg/dL (0.20-1.00); TOTAL PROTEIN 6.5 g/dL (6.3-8.3)
[2017-07-03] MEDS ORDERED: MAGNESIUM SULFATE 2 GM/S.W.I. 2 GM/50 ML IVPB IV ONE (09:30)
[2017-07-03] MEDS: PREDNISONE PO SCH (09:47)
[2017-07-03] MEDS: ASPIRIN EC PO SCH (09:47)
[2017-07-03] MEDS: COREG PO SCH ×2 (09:48→23:34)
[2017-07-03] MEDS: MIRALAX PO SCH (09:48)
[2017-07-03] MEDS: XARELTO PO SCH (09:48)
[2017-07-03] MEDS: VICON-C PO SCH (09:48)
--- NOTE | 2017-07-03 11:16 | PROGRESS NOTE ---
DATE: 07/03/2017 Ms. Lo is resting very quietly now. With minimal stimulation, she was awake and alert, followed simple commands consistently. Speech is minimal, but not dysarthric. Language function seems intact on very brief and limited bedside testing now. I did not test her cognitive function. She has equal power on brief testing in the limbs. I did not ask her to stand or walk. IMPRESSION: I am not certain what happened yesterday. At times, she seemed globally dysphasic and, at other times, alert and inattentive, and at other times not as alert. There was question of seizure, but she was so uncooperative electroencephalogram could not be performed. Today, she is much, much improved, and I do not think we need electroencephalogram or other urgent workup from neurologic standpoint. I suspect she has baseline cognitive impairment, which the caregiver had reported, and that would predispose her to prominent encephalopathy with relatively minor toxic or metabolic disturbance. No urgent suggestion from neurologic standpoint today. cc: Ollie Gentile III, MD MTDD
[2017-07-03] MEDS: POTASSIUM CHLORIDE 20 MEQ/SWI 20 MEQ/100 ML IVPB IV SCH ×2 (12:44→18:35)
--- NOTE | 2017-07-03 15:54 | PROGRESS NOTE ---
DATE: 07/03/2017 SUBJECTIVE: Today, Ms. Lo was nodding to my questions. She did not actually verbalize anything but was able to nod yes and no to questions. OBJECTIVE: Blood pressure is 197/87, pulse of 81, respirations 16, temperature is 98.8 degrees. General: Ms. Lo is 76-year-old female. She is in bed and does not seems to be in any remarkable distress. HEENT: Mucosa is pink and moist. Anicteric. Acyanotic. Neck is supple. Chest is clear. Cardiovascular: Regular rate and rhythm. Abdomen is soft, nontender. There is no hepatosplenomegaly. Extremities: No pedal edema. Distal pulses are present. 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 The patient will move his lower extremities actively to painful stimulation. LABORATORY DATA: WBC is 16.6. His hemoglobin is 12.0. Platelet count of 267,000. Chemistry is reviewed and unremarkable except for potassium of 3.1. ASSESSMENT: 1. Altered mental status on presentation. Etiology is unclear. We think it is related to toxic metabolic encephalopathy. The patient seems to be understanding everything that is going on. I do not know if she has willingly chosen not to be responsive to verbal stimulation. I am also kind of concerned if there is any underlying psychosocial stressors that is causing her to withdraw, but we will would keep a very close eye on this during the next few days. 2. Clinical dehydration. This is slightly improving. We will continue with the IV hydration. 3. Severe constipation with fecal impaction secondary to narcotic abuse. Patient had 1 bowel movement today. We will continue addressing. We will also repeat a chest and abdominal x-ray tomorrow to follow up on that. 4. Stercoral proctitis, stable. 5. Severe diverticulosis coli. Patient is not having any bleeding or any signs of acute diverticulitis. 6. Chronic microvascular changes on MRI. Patient could as well have vascular dementia. 7. Mild hypokalemia. We will continue to address this. 8. Hypertension. Patient is currently on carvedilol 25 mg twice per day; however, blood pressure is still very uncontrolled, so we will add amlodipine to see if that will help with blood pressure control. cc: Cale Garcia MD
[2017-07-03] MEDS: ROCEPHIN 1 GM in NS 50 ML IV SCH (16:26)
[2017-07-03] MEDS ORDERED: BENTYL PO ONE (20:23)
--- NOTE | 2017-07-03 20:59 | PROGRESS NOTE ---
DATE: 07/03/2017 SUBJECTIVE: The patient has received laxatives and enemas with minimal fecal output. According to the nursing staff, she is constantly in pain and writhing around on the bed. OBJECTIVE: Vital signs: A correction on exam, her blood pressure is 193/89, pulse 78, respiration 21, temperature of 98.5 degrees. LABORATORY: Objective data available in the computer is remarkable for hemoglobin of 12, hematocrit of 36.3, and a white count of 16.66. She has 267,000 platelets. Sodium is 140, potassium 3.1, chloride 96, CO2 22, BUN 18, creatinine 0.9 with a glucose of 130. Calcium is 9.6, total bilirubin 0.37, AST 11, ALT 6, alkaline phosphatase 62, total protein 6.5 , albumin 3.3. RECOMMENDATION: 1. Because of the patient's refractory constipation, I would recommend a trial of lactulose 30 mL p.o. q.6 hours until she defecates. Once she has cleared most of the stool in her colon, is reasonable to reduce the dose. It will be important to avoid diarrhea to minimize her risk for decubitus ulcer. 2. Although the patient is 76 years of age, I will give her a single dose of Bentyl 10 mg 1 orally as she is currently experiencing significant abdominal spasms. Unfortunately, because this is on the [facility] list, she will not be able to continue this medication as outpatient. 3. Additional recommendations to follow based on her clinical course. cc: MD Cale Carlisle MD MTDD
[2017-07-03] MEDS: LACTULOSE PO SCH (23:34)
[2017-07-03] MEDS: NORVASC PO SCH (23:34)
[2017-07-03] MEDS: CRESTOR PO SCH (23:35)
[2017-07-04] MEDS: NS 1,000 ML IV SCH (04:09)
[2017-07-04] MEDS: FLAGYL 500 MG/NS 500 MG/100 ML IVPB IV SCH ×2 (04:09→08:18)
[2017-07-04] MEDS: LACTULOSE PO SCH ×4 (04:09→21:41)
[2017-07-04 06:09] LABS: MANUAL DIFF NEEDED? NO
[2017-07-04] MEDS: MOVANTIK PO SCH (06:11)
[2017-07-04 06:12] LABS: BASO% 0.1 % (0.0-0.8); EOS# 0.07 X1000 (0.0-0.7); EOS% 0.5 % (0.0-10.0); HEMATOCRIT 36.6 % (37.0-47.0); HEMOGLOBIN 12.1 g/dL (12.0-16.0); IMM GRAN# 0.05 X1000 (0.0-0.04); IMM GRAN% 0.4 % (0.0-0.5); LYMPH# 1.48 X1000 (1.2-3.4); LYMPH% 10.9 % (20.5-51.1); MCH 28.9 PG (27-31); MCHC 33.1 g/dL (33-37); MCV 87.4 FL (81-99); MONO# 1.55 X1000 (0.11-0.59); MONO% 11.5 % (1.7-9.3); NEUT% 76.6 % (42.2-75.2); PLT 240 X1000 (130-400); RBC 4.19 XMIL (4.2-5.4)
[2017-07-04 06:27] LABS: AGAP 19; BUN 16 mg/dL (8-22); CALCIUM 8.6 mg/dL (8.8-10.2); CHLORIDE 98 mmol/L (98-107); COSMO 282; MAGNESIUM 1.6 mg/dL (1.5-2.7); POTASSIUM 3.1 mmol/L (3.5-5.1); SODIUM 140 mmol/L (136-145); TCO2 23 mmol/L (25-35)
[2017-07-04] MEDS: PREDNISONE PO SCH (08:15)
[2017-07-04] MEDS: NORVASC PO SCH ×2 (08:15→21:42)
[2017-07-04] MEDS: VICON-C PO SCH (08:16)
[2017-07-04] MEDS: XARELTO PO SCH (08:16)
[2017-07-04] MEDS: COREG PO SCH ×2 (08:16→21:42)
[2017-07-04] MEDS: ASPIRIN EC PO SCH (08:16)
[2017-07-04] MEDS: MIRALAX PO SCH (08:17)
[2017-07-04] MEDS ORDERED: MAGNESIUM SULFATE 2 GM/S.W.I. 2 GM/50 ML IVPB IV ONE (09:12)
--- NOTE | 2017-07-04 09:53 | Diag Imaging Result Doc PS360 ---
EXAM: KUB ABDOMEN HISTORY: constipation FINDINGS: The bowel loops are not distended. No significant stool throughout the colon. No organomegaly. Mild scoliosis with degenerative spine changes. There are multiple pelvic phleboliths. 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 IMPRESSION: No significant constipation. Electronically signed by Heriberto Russ 07/04/2017 9:50 AM
--- NOTE | 2017-07-04 11:06 | PROGRESS NOTE ---
DATE: 07/04/2017 Ms. Lo is more alert today. She answered simple questions consistently. She had some trouble with commands requiring right/left distinction. She had trouble with repeating pronouns but was able to repeat other words. She did well with bedside testing of naming. IMPRESSION: Clinical findings now are consistent with mild expressive and receptive dysphasia. I am not sure how much of this is baseline and how much is new neurologic deficit. There is clear history of baseline cognitive impairment, and recent abrupt change may have been associated with a transient toxic or metabolic disturbance. She did present with dehydration and GI complaints. I still have some questions regarding her medicines, particularly pain medication at home. At this point, she is stable and seems to be clinically improving from neurologic standpoint. She had brain MRI, 2 days ago which showed extensive white matter changes, but nothing focal or acute. I do not think we need to repeat that now. EEG was unsuccessful when attempted earlier but she has not had any further fluctuations in level of attention or consciousness. We might consider EEG later but I do not think that is urgent. No specific suggestion today from a neurologic standpoint. cc: MD TED Marie III
[2017-07-04] MEDS: POTASSIUM CHLORIDE 20 MEQ/SWI 20 MEQ/100 ML IVPB IV SCH ×2 (11:33→13:44)
[2017-07-04] MEDS: PRINIVIL PO SCH (12:11)
--- NOTE | 2017-07-04 12:42 | PROGRESS NOTE ---
DATE: 07/04/2017 PRESENTING COMPLAINT: Altered mental status. SUBJECTIVE: Today, Ms. Lo refers to be doing a little better. She was actually able to verbalize a lot of things to me. She was able to tell me where she lives and her 's name. She knows where she is now and was able to tell me the full name of the hospital. OBJECTIVE: Vital Signs: Blood pressure is 209/86, pulse is 72, respiration is 18, temperature 98.9 degrees. General: Ms. Lo is a 76-year-old female. She is in bed. She did not seem to be in any remarkable distress. Mucosa is pink and moist. Anicteric. Acyanotic. Neck is supple. Chest: Good air entry bilateral. No crepitations. No rhonchi. Cardiovascular: Regular rate and rhythm. Abdomen is soft. Mildly tender in the periumbilical area. No hepatosplenomegaly. Bowel sounds are slightly hypoactive. Extremities: No pedal edema. WIDTH STRIPPER: I do not think she is drowsy. I just think she has her eyes closed, but she is able to open them on command. She is able to move all her extremities. She was able to sustain a few conversations with me today. LABORATORY DATA: WBC is 13.52, hemoglobin is 12.1, platelet count is 240,000. Chemistry is also reviewed and unremarkable except for potassium of 3.1, phosphorus of 2.1. Magnesium is 1.6. KUB this morning which shows bowel loops are not distended and no significant stool throughout the colon. No organomegaly. ASSESSMENT: 1. Altered mental status on presentation likely from toxic metabolic encephalopathy. This is remarkably improved. Patient is able to sustain a few conversations. I still believe that the patient has intentionally decided not to speak that much. I am not quite sure if there is any underlying psychosocial stress that is driving some of her clinical presentation. 2. Dehydration, improved. We will discontinue the IV fluids. 3. Severe constipation with fecal impaction. We think this is secondary to narcotic abuse. The patient has had 3 bowel movements today. KUB looks a whole lot better today. 4. Stercoral proctitis noted. 5. Severe diverticulosis coli without diverticulitis. The patient was initially started on antibiotics. I have discontinued this since patient does not have any significant abdominal discomfort now. 6. Chronic microvascular changes on MRI. 7. Multimineral deficiency (hypokalemia, hypomagnesemia, and hypophosphatemia) likely from nutritional deficiencies. Will continue to replace all of these. 8. Generalized deconditioning. We will get the patient to be seen by physical therapy. We will encourage the patient to sit up in the chair at least twice per day. I have discontinued the John catheter and also the IV fluids. I think patient will be able to be discharged tomorrow if she continues to improve in her clinical condition. cc: Cale Garcia MD
[2017-07-04] MEDS: CRESTOR PO SCH (21:42)
[2017-07-05] MEDS: LACTULOSE PO SCH ×2 (04:14→11:49)
[2017-07-05] MEDS: MOVANTIK PO SCH (06:18)
[2017-07-05] MEDS: ASPIRIN EC PO SCH (11:47)
[2017-07-05] MEDS: PRINIVIL PO SCH (11:48)
[2017-07-05] MEDS: XARELTO PO SCH (11:48)
[2017-07-05] MEDS: PREDNISONE PO SCH (11:48)
[2017-07-05] MEDS: NORVASC PO SCH ×2 (11:48→20:31)
[2017-07-05] MEDS: COREG PO SCH ×2 (11:48→20:31)
[2017-07-05] MEDS: VICON-C PO SCH (11:48)
[2017-07-05] MEDS: MIRALAX PO SCH (11:49)
--- NOTE | 2017-07-05 12:22 | Diag Imaging Result Doc PS360 ---
KUB ABDOMEN - 07/05/2017 INDICATION: abd pain TECHNIQUE: COMPARISON: 07/04/2017 FINDINGS: There is a nonobstructive bowel gas pattern. No free air or abdominal calcifications. IMPRESSION: No acute disease. Electronically signed by Hakan Dallas 07/05/2017 12:20 PM
[2017-07-05] MEDS: TYLENOL PO PRN (13:25)
--- NOTE | 2017-07-05 15:41 | PROGRESS NOTE ---
DATE: 07/05/2017 SUBJECTIVE: Today, Ms. Lo referred to be stable. She says she has had multiple, multiple episodes of bowel movements today. OBJECTIVE: Vital signs: Blood pressure is 163/58, pulse of 77, respirations 13, temperature 98.3. General: Ms. Lo is a 76-year-old, female. She is in bed, not in any distress. HEENT: Mucosa is pink and moist. Anicteric. Acyanotic. Neck: Supple. Chest: Good air entry bilaterally. No crepitations. No rhonchi. Cardiovascular: Regular rate and rhythm. There are no murmurs, no rubs, no gallops. Abdomen: Soft, nontender. There is no hepatosplenomegaly. Bowel sounds are normal and present in all 4 quadrants. Extremities: No pedal edema. Distal pulses are present. JOINT MAKER MACHINE: Patient is easily arousable. She is conversational. She just prefers to keep her eyes closed. LABORATORY DATA: Glucose is 104. ASSESSMENT: 1. Altered mental status on presentation, likely from toxic metabolic encephalopathy. This is improved. 2. Dehydration improved. 3. Severe constipation with fecal impaction. This is improved as well. Patient is actually having too much of bowel movement and we are going to discontinue the bowel regimen medications. 4. Stercoral proctitis noted. 5. Severe diverticulosis coli without diverticulitis. 6. Chronic microvascular changes on MRI. 7. Multi-mineral deficiency including (hypokalemia, hypomagnesemia, hypophosphatemia, likely from nutritional deficiencies. We will replace this). 8. Generalized deconditioning. 9. Suspected situational depression. Patient seems to be remarkably withdrawn. Only responds to basic questions. She is not very interactive and I suspect she probably has some underlying psychosocial stresses which she will need to follow up on outpatient basis with a therapist. 10. Hypertension, improved. cc: Cale Garcia MD
--- NOTE | 2017-07-05 20:02 | PROGRESS NOTE ---
DATE: 07/05/2017 SUBJECTIVE: The patient states that she feels much better today. She is actually interactive. She notes that the heartburn, indigestion, abdominal pain and constipation have resolved. Unfortunately, she reports that she is not hungry and has not consumed any solid food this admission. According to her sister, she has refused everything but a few sips of full liquids. OBJECTIVE: Vital signs: On exam, her blood pressure is 180/78, pulse 73, respiration 14, temperature of 98.7 degrees. Pulmonary: Lungs are clear to auscultation with normal respiratory effort. Cardiovascular: Reveals regular rate and rhythm with no gallops or rubs. Abdomen: Reveals normoactive bowel sounds. The abdomen is soft. There has been interval resolution of the left lower quadrant pain. There is no rebound or guarding. Neurologic: She is conversational. She was able to answer questions appropriately. RECOMMENDATION: 1. The patient's constipation has significantly improved with the addition of lactulose. I suspect she will need a home bowel regimen. I recommend Movantik once a day as long as she is remaining on the narcotics. 2. She may use lactulose as needed for refractory constipation. 3. Begin Anusol HC suppositories twice a day for 7 days for treatment of the proctitis secondary to the constipation. 4. I discussed with the patient how important it is to eat. She was encouraged to consume her diet including solid food. If she is unable to do so, it is reasonable to consider an EGD for further evaluation to rule out ulcer disease. My recommendation is to avoid endoscopic intervention if at all possible. 5. I will reassess her diet tomorrow. Hopefully, she will be able to go home from a GI standpoint in the next few days. cc: Cale Garcia MD
[2017-07-05] MEDS: ANUSOL-HC SUPP PR SCH (20:31)
[2017-07-05] MEDS: CRESTOR PO SCH (20:31)
[2017-07-06] MEDS: MOVANTIK PO SCH (06:31)
[2017-07-06] MEDS: TYLENOL PO PRN (06:32)
[2017-07-06 06:36] LABS: MANUAL DIFF NEEDED? NO
[2017-07-06 06:42] LABS: BASO% 0.2 % (0.0-0.8); EOS# 0.13 X1000 (0.0-0.7); EOS% 1.5 % (0.0-10.0); HEMATOCRIT 37.5 % (37.0-47.0); HEMOGLOBIN 12.5 g/dL (12.0-16.0); IMM GRAN# 0.04 X1000 (0.0-0.04); IMM GRAN% 0.5 % (0.0-0.5); LYMPH# 2.35 X1000 (1.2-3.4); LYMPH% 27.2 % (20.5-51.1); MCHC 33.3 g/dL (33-37); MONO# 0.88 X1000 (0.11-0.59); MONO% 10.2 % (1.7-9.3); MPV 9.8 FL (7.4-10.4); NEUT% 60.4 % (42.2-75.2); PLT 249 X1000 (130-400); RBC 4.31 XMIL (4.2-5.4)
[2017-07-06 07:09] LABS: AGAP 14; BUN 13 mg/dL (8-22); CALCIUM 8.9 mg/dL (8.8-10.2); CHLORIDE 99 mmol/L (98-107); COSMO 274; POTASSIUM 3.2 mmol/L (3.5-5.1); SODIUM 137 mmol/L (136-145); TCO2 24 mmol/L (25-35)
[2017-07-06] MEDS: PREDNISONE PO SCH (08:09)
[2017-07-06] MEDS: ASPIRIN EC PO SCH (08:09)
[2017-07-06] MEDS: VICON-C PO SCH (08:09)
[2017-07-06] MEDS: COREG PO SCH (08:10)
[2017-07-06] MEDS: ANUSOL-HC SUPP PR SCH ×2 (08:10→08:14)
[2017-07-06] MEDS: NORVASC PO SCH (08:10)
[2017-07-06] MEDS: XARELTO PO SCH (08:10)
[2017-07-06] MEDS: PRINIVIL PO SCH (08:11)
[2017-07-06] MEDS ORDERED: KLOR-CON PO ONE (08:41)
[2017-07-06] MEDS ORDERED: NORCO-7.5 PO ONE (09:14)
[2017-07-06 14:12] VITALS: BP 184/76
--- NOTE | 2017-07-06 19:19 | DISCHARGE SUMMARY ---
ADMISSION DATE: 07/01/2017 DISCHARGE DATE: 07/06/2017 DISPOSITION: Home. FOLLOWUP: 1. Dr. Solorzano. 2. Dr. Isabelle Mccracken. CONSULTATION DURING THIS ADMISSION: 1. Neurology was consulted. Patient was seen by Dr. Gentile. 2. GI was consulted. Patient was seen by Dr. Solorzano. INVASIVE PROCEDURES DONE DURING THIS ADMISSION: None. IMAGING STUDIES OF SIGNIFICANCE: 1. A CT scan of the abdomen and pelvis without contrast shows constipation with rectal fecal impaction, severe stercoral proctitis, severe diverticulosis coli. 2. A CT scan of the head without contrast was done which shows sinusitis. No acute intracranial abnormality. 3. An MRI of the brain was done which shows extensive chronic microvascular changes. No definite evidence of acute disease. 4. A KUB was done which shows no significant constipation, it has resolved. ADMISSION DIAGNOSES: 1. Abdominal pain secondary to severe stercoral proctitis from fecal impaction. 2. Expressive aphasia with visible elevated blood pressure. 3. Uncontrolled hypertension. 4. Severe diverticulosis. DIAGNOSES AT THE TIME OF DISCHARGE: 1. Altered mental status on presentation likely from toxic metabolic encephalopathy, improved. 2. Clinical dehydration, improved. 3. Severe constipation with fecal impaction, improved. 4. Stercoral proctitis. 5. Severe diverticulosis without diverticulitis. 6. Chronic microvascular changes on MRI. 7. Multi-Mineral deficiencies including hypokalemia, hypomagnesemia and hypophosphatemia, likely due to nutritional deficiencies. 8. Hypertension, improved. 9. Suspected situational depression. 10. Generalized deconditioning. MEDICATIONS ON DISCHARGE: 1. Carvedilol 25 mg b.i.d. 2. Fenofibrate. 3. [place] 3 fatty acid. 4. Furosemide has been discontinued. 5. Vitamin B. 6. Cholecalciferol 1000 units daily. 7. Folic acid 1 mg daily. 8. Gabapentin 200 mg daily. 9. Crestor 5 mg daily. 10. Allopurinol 300 mg daily. 11. Rivaroxaban 20 mg daily. 12. Lisinopril 10 mg daily. 13. Amlodipine 5 mg daily. 14. Movantik 12.1 daily. 15. Gabapentin 200 p.o. q. 8. PRESENTING COMPLAINT: Lower abdominal pain. HISTORY OF PRESENTING COMPLAINT: Ms. Lo is a 76-year-old female, extremely poor historian, who presented to the emergency department because of abdominal pain. Investigations were done and the patient was found to be in fecal impaction. However, during the stay in the ER, patient was found to be aphasic and blood pressure was extremely high of 190/96 and it went up to 216/113. There was the question of possible TIA. The patient was admitted for further medical care. HOSPITAL COURSE: During the hospital stay, patient was adequately hydrated. Bowel regimen was instituted and the patient was seen by GI. The patient progressively improved from GI standpoint with multiple episodes of bowel movements. In terms of the neurological aspect, patient was seen by Dr. Gentile. MRI was done, which was completely negative. However, patient was very resistant to interacting on a daily basis during encounters. However, yesterday and today there has been a remarkable turn around. The patient is very delightful, is talking more, completely normal speech. The patient has been able to tolerate her feeding and has been able to walk to bathroom without any problems. Her lab works have also been reviewed and WBC is normalized. Chemistry is completely unremarkable except for potassium which will continue with replacement. Today Ms. Lo referred to be doing fine. She was excited to know that she will be going home. She does not have any complaints. She has not had any bowel movement. Yesterday there was a concern that she was having too much bowel movement, so the bowel regimen was withheld, but the patient will continue with some of them at home. This morning vitals were blood pressure 165/74, pulse of 79, respirations 18, temperature 98.7 degrees. Physical exam is completely unremarkable. Patient will therefore be discharged. She will follow up with Dr. Solorzano for outpatient GI evaluation to make sure there is not any underlying disease that could potentially predispose her for this recurrent constipation. Patient was on a lot of narcotics at home and we have stressed the importance of staying away from narcotics since these do not address long-term pain management. At the time of discharge, there is no pending lab work or any imaging studies. DISPOSITION: Home. Activity as tolerated. Diet will be high-fiber diet with adequate hydration and patient will follow up with the subspecialties that have been involved in her care. Time spent for discharge is 37 minutes. cc: Cale Garcia MD
== END 2017-07-06 15:22 | disposition home health service (06) ==
LOC: ED 13:07 → SUATTDRO 21:25 → EDIPHOLD 21:25 → 3N 07-02 15:06
PROVIDERS: ATTEND Internal Medicine

== ENCOUNTER 2017-07-21 09:30 | Inpatient (IN) ==
[2017-07-21] MEDS ORDERED: NS 500 ML IV ONE (09:59)
[2017-07-21] MEDS ORDERED: REGLAN IV ONE (09:59)
[2017-07-21] MEDS ORDERED: PHENERGAN IV ONE (10:00)
[2017-07-21] MEDS ORDERED: SODIUM CHLORIDE 0.9% INJ ONE (10:00)
[2017-07-21 10:11] LABS: MANUAL DIFF NEEDED? NO
[2017-07-21 10:16] LABS: BASO% 0.4 % (0.0-0.8); EOS# 0.26 X1000 (0.0-0.7); EOS% 3.8 % (0.0-10.0); HEMATOCRIT 37.2 % (37.0-47.0); HEMOGLOBIN 12.1 g/dL (12.0-16.0); IMM GRAN# 0.02 X1000 (0.0-0.04); IMM GRAN% 0.3 % (0.0-0.5); LYMPH# 1.62 X1000 (1.2-3.4); LYMPH% 23.7 % (20.5-51.1); MCH 29.2 PG (27-31); MCHC 32.5 g/dL (33-37); MCV 89.9 FL (81-99); MONO# 1.22 X1000 (0.11-0.59); MONO% 17.9 % (1.7-9.3); MPV 9.8 FL (7.4-10.4); NEUT% 53.9 % (42.2-75.2); PLT 268 X1000 (130-400); RBC 4.14 XMIL (4.2-5.4)
[2017-07-21 10:29] LABS: ALBUMIN 3.6 g/dL (3.5-5.0); CALCIUM 11.2 mg/dL (8.8-10.2); POTASSIUM 3.2 mmol/L (3.5-5.1); TOTAL BILIRUBIN 0.41 mg/dL (0.20-1.00); TOTAL PROTEIN 7.1 g/dL (6.3-8.3)
[2017-07-21] MEDS ORDERED: LABETALOL IV ONE (10:35)
[2017-07-21 10:45] LABS: URINE CULTURE NEEDED? NO; URINE MICRO REVIEW NEEDED? NO; URINE SOURCE CATH
[2017-07-21 10:48] LABS: BILIRUBIN URINE NEGATIVE (NEGATIVE); BLOOD URINE NEGATIVE (NEGATIVE); COLOR YELLOW; GLUCOSE URINE NEGATIVE (NEGATIVE); LEUKOCYTES URINE NEGATIVE (NEGATIVE); NITRITE URINE NEGATIVE (NEGATIVE); PROTEIN URINE NEGATIVE (NEGATIVE); SP GRAVITY URINE 1.009; TURBIDITY URINE HAZY (CLEAR); UR EPITHELIAL CELLS <10 /HPF (<10); URINE BACTERIA NEGATIVE /HPF; URINE RBC <10 /HPF (<10); URINE WBC <10 /HPF (<10); UROBILINOGEN URINE NORMAL (NORMAL)
[2017-07-21] MEDS ORDERED: APRESOLINE IV ONE (12:03)
[2017-07-21] MEDS ORDERED: TORADOL IV ONE (13:57)
[2017-07-21] MEDS ORDERED: NS 1,000 ML IV SCH (16:34)
[2017-07-21] MEDS ORDERED: ZOFRAN IV PRN (16:34)
[2017-07-21] MEDS: OFIRMEV 1000 MG/ISOTONIC SOLN 1,000 MG/100 ML BOTTLE IV SCH ×2 (18:31→22:12)
[2017-07-21] MEDS: NEURONTIN PO SCH (18:32)
[2017-07-21] MEDS: NS 1,000 ML IV SCH (18:32)
[2017-07-21] MEDS: FLEXERIL PO SCH (18:32)
[2017-07-21] MEDS: ATROVENT NEB INH PRN ×2 (19:24→23:20)
[2017-07-21] MEDS: XOPENEX NEB INH PRN ×2 (19:24→23:20)
[2017-07-21] MEDS ORDERED: TORADOL IV SCH (20:00)
[2017-07-21] MEDS: TRICOR PO SCH (22:12)
[2017-07-21] MEDS: PERICOLACE PO SCH (22:13)
[2017-07-21] MEDS: COREG PO SCH (22:13)
[2017-07-21 23:54] LABS: UR AMPHETAMINES QUAL NONE DETECTED (NONE DETECT); UR BARBITUATES QUAL NONE DETECTED (NONE DETECT); UR BENZODIAZEPIN QUAL NONE DETECTED (NONE DETECT); UR CANNABINOIDS QUAL NONE DETECTED (NONE DETECT); UR COCAINE QUAL NONE DETECTED (NONE DETECT); UR METHADONE QUAL NONE DETECTED (NONE DETECT); UR OPIATES QUAL NONE DETECTED (NONE DETECT); UR OXYCODONE QUAL NONE DETECTED (NONE DETECT); UR PCP QUAL NONE DETECTED (NONE DETECT)
[2017-07-22] MEDS: NEURONTIN PO SCH ×3 (00:21→16:05)
[2017-07-22] MEDS: OFIRMEV 1000 MG/ISOTONIC SOLN 1,000 MG/100 ML BOTTLE IV SCH ×4 (04:55→21:58)
[2017-07-22] MEDS: NS 1,000 ML IV SCH ×2 (04:55→16:08)
[2017-07-22 06:52] LABS: EOS# 0.17 X1000 (0.0-0.7); EOS% 3.4 % (0.0-10.0); HEMATOCRIT 36.1 % (37.0-47.0); HEMOGLOBIN 11.8 g/dL (12.0-16.0); IMM GRAN# 0.02 X1000 (0.0-0.04); IMM GRAN% 0.4 % (0.0-0.5); LYMPH# 1.68 X1000 (1.2-3.4); LYMPH% 33.6 % (20.5-51.1); MANUAL DIFF NEEDED? YES; MCH 29.6 PG (27-31); MCHC 32.7 g/dL (33-37); MCV 90.7 FL (81-99); MONO# 1.07 X1000 (0.11-0.59); MONO% 21.4 % (1.7-9.3); MPV 10.2 FL (7.4-10.4); NEUT% 40.2 % (42.2-75.2); PLT 249 X1000 (130-400); RBC 3.98 XMIL (4.2-5.4)
[2017-07-22 06:57] LABS: INR 1.11; PROTIME 11.7 Seconds (9.2-11.7); PTT 27.1 Seconds (22.0-36.0)
[2017-07-22] MEDS: MOVANTIK PO SCH (06:58)
[2017-07-22] MEDS: PRILOSEC PO SCH (06:58)
[2017-07-22 07:05] LABS: ALBUMIN 3.1 g/dL (3.5-5.0); CALCIUM 10.2 mg/dL (8.8-10.2); MAGNESIUM 1.5 mg/dL (1.5-2.7); POTASSIUM 2.6 mmol/L (3.5-5.1); TOTAL BILIRUBIN 0.49 mg/dL (0.20-1.00); TOTAL PROTEIN 6.3 g/dL (6.3-8.3)
[2017-07-22] MEDS: ATROVENT NEB INH PRN ×4 (07:48→23:10)
[2017-07-22] MEDS: XOPENEX NEB INH PRN ×3 (07:48→15:19)
[2017-07-22 07:59] LABS: EOS 4 % (1-10); LYMPHS 40 % (21-51); MONO 14 % (1-9)
[2017-07-22] MEDS ORDERED: PRINIVIL PO SCH (09:00)
[2017-07-22] MEDS ORDERED: PROSCAR PO SCH (09:00)
[2017-07-22] MEDS ORDERED: LASIX PO SCH (09:00)
[2017-07-22] MEDS: FOLIC ACID PO SCH (09:39)
[2017-07-22] MEDS: PERICOLACE PO SCH ×2 (09:39→21:58)
[2017-07-22] MEDS: COREG PO SCH ×2 (09:39→21:58)
[2017-07-22] MEDS: ZYLOPRIM PO SCH (09:39)
[2017-07-22] MEDS: MEVACOR PO SCH (09:40)
[2017-07-22] MEDS: PREDNISONE PO SCH (09:40)
[2017-07-22] MEDS: CALTRATE 600 + D PO SCH (09:41)
[2017-07-22] MEDS: XARELTO PO SCH (09:41)
[2017-07-22] MEDS: FLEXERIL PO SCH ×3 (09:41→18:00)
[2017-07-22] MEDS: VITAMIN D PO SCH (09:41)
[2017-07-22] MEDS: FISH OIL CONCENTRATE PO SCH (09:41)
[2017-07-22] MEDS ORDERED: KLOR-CON PO ONE (09:42)
[2017-07-22] MEDS: PATIENT'S OWN MED PO SCH (09:58)
[2017-07-22] MEDS: POTASSIUM CHLORIDE 20 MEQ/SWI 20 MEQ/100 ML IVPB IV SCH ×2 (11:42→14:16)
[2017-07-22] MEDS: TRICOR PO SCH (21:58)
[2017-07-23] MEDS: NEURONTIN PO SCH ×3 (01:12→16:48)
[2017-07-23] MEDS: HALL'S COUGH LOZENGE MT PRN ×2 (01:12→09:07)
[2017-07-23] MEDS: OFIRMEV 1000 MG/ISOTONIC SOLN 1,000 MG/100 ML BOTTLE IV SCH ×2 (03:34→10:40)
[2017-07-23] MEDS: XOPENEX NEB INH PRN ×6 (04:00→23:00)
[2017-07-23] MEDS: ATROVENT NEB INH PRN ×6 (04:00→23:00)
[2017-07-23 05:48] LABS: MANUAL DIFF NEEDED? NO
[2017-07-23 05:54] LABS: BASO% 0.2 % (0.0-0.8); EOS# 0.17 X1000 (0.0-0.7); EOS% 1.9 % (0.0-10.0); HEMOGLOBIN 10.4 g/dL (12.0-16.0); IMM GRAN# 0.02 X1000 (0.0-0.04); IMM GRAN% 0.2 % (0.0-0.5); LYMPH# 2.01 X1000 (1.2-3.4); LYMPH% 22.9 % (20.5-51.1); MCH 29.4 PG (27-31); MCHC 32.5 g/dL (33-37); MCV 90.4 FL (81-99); MONO# 1.02 X1000 (0.11-0.59); MONO% 11.6 % (1.7-9.3); MPV 10.1 FL (7.4-10.4); NEUT% 63.2 % (42.2-75.2); PLT 225 X1000 (130-400); RBC 3.54 XMIL (4.2-5.4)
[2017-07-23 06:21] LABS: CALCIUM 8.8 mg/dL (8.8-10.2); POTASSIUM 3.3 mmol/L (3.5-5.1)
[2017-07-23] MEDS: PRILOSEC PO SCH (06:24)
[2017-07-23] MEDS: MOVANTIK PO SCH (06:24)
[2017-07-23] MEDS: PATIENT'S OWN MED PO SCH (09:00)
[2017-07-23] MEDS: CALTRATE 600 + D PO SCH (09:05)
[2017-07-23] MEDS: COREG PO SCH ×2 (09:06→21:37)
[2017-07-23] MEDS: MEVACOR PO SCH (09:06)
[2017-07-23] MEDS: FISH OIL CONCENTRATE PO SCH (09:06)
[2017-07-23] MEDS: ZYLOPRIM PO SCH (09:06)
[2017-07-23] MEDS: FOLIC ACID PO SCH (09:06)
[2017-07-23] MEDS: PREDNISONE PO SCH (09:06)
[2017-07-23] MEDS: FLEXERIL PO SCH ×3 (09:06→17:21)
[2017-07-23] MEDS: XARELTO PO SCH (09:07)
[2017-07-23] MEDS: VITAMIN D PO SCH (09:07)
[2017-07-23] MEDS: PERICOLACE PO SCH ×2 (09:07→21:37)
[2017-07-23] MEDS: KLOR-CON PO SCH (17:21)
[2017-07-23] MEDS: TRICOR PO SCH (21:37)
[2017-07-24] MEDS: NEURONTIN PO SCH ×2 (01:59→08:15)
[2017-07-24] MEDS: ATROVENT NEB INH PRN ×2 (03:30→08:52)
[2017-07-24] MEDS: XOPENEX NEB INH PRN ×2 (03:30→08:52)
[2017-07-24] MEDS: PRILOSEC PO SCH (06:02)
[2017-07-24] MEDS: MOVANTIK PO SCH (06:02)
[2017-07-24 07:51] VITALS: BP 204/94
[2017-07-24] MEDS: FOLIC ACID PO SCH (08:14)
[2017-07-24] MEDS: XARELTO PO SCH (08:14)
[2017-07-24] MEDS: COREG PO SCH (08:14)
[2017-07-24] MEDS: PREDNISONE PO SCH (08:14)
[2017-07-24] MEDS: KLOR-CON PO SCH (08:15)
[2017-07-24] MEDS: MEVACOR PO SCH (08:15)
[2017-07-24] MEDS: CALTRATE 600 + D PO SCH (08:16)
[2017-07-24] MEDS: VITAMIN D PO SCH (08:16)
[2017-07-24] MEDS: FISH OIL CONCENTRATE PO SCH (08:16)
[2017-07-24] MEDS: ZYLOPRIM PO SCH (08:16)
[2017-07-24] MEDS: PERICOLACE PO SCH (08:16)
[2017-07-24] MEDS: FLEXERIL PO SCH (08:16)
== END 2017-07-24 11:32 | disposition home or self-care (01) ==
LOC: SUPCPDRO → ED 09:30 → SUATTDRO 15:30 → 4N 15:30
PROVIDERS: ATTEND Emergency Medicine